=== PATIENT | male | born 1965 | race African-American/Black ===

== ENCOUNTER 2021-04-28 11:45 | Inpatient (IN) | payer OTHER ==
[~2021-04-28 11:45] MED LIST: ISOVUE-370 76%-LOCM 1 ML ONE
[2021-04-28 12:27] LABS: #Eosinphils 0.1 thou/uL (0.0-0.7); #Monocytes 0.7 thou/uL (0.11-0.59); #Neutrophils 5.8 thou/uL (1.40-6.50); %Basophils 0.3 % (0.0-1.0); %Eosinophils 1.9 % (0.0-10.0); %Monocytes 8.7 % (0.0-10.0); %Neutrophils 76.2 % (42.0-75.0); Hemoglobin 11.1 g/dL (14.0-18.0); Mean Corpuscular HGB CONC 31.1 g/dL (32.0-36.0); Mean Corpuscular Hemoglobin 24.4 pg (27.0-31.0); Mean Corpuscular Volume 78.7 fL (78.0-98.0); Mean Platelet Volume 6.4 fL (7.4-10.4); Platelet Count 151 thou/uL (130-400); RBC Distribution Width 22.4 % (11.5-14.5); Red Blood Cell (RBC) Count 4.53 mill/uL (4.70-6.10); White Blood Cell (WBC) Count 7.7 thou/uL (4.8-10.8)
[2021-04-28 12:34] LABS: INR-International Normal Ratio 1.6; Prothrombin Time 19.2 sec (12.0-14.7)
[2021-04-28] MEDS ORDERED: niCARdipine 25 MG/10 ML VIAL ONE (12:45)
[2021-04-28 12:49] LABS: ALT (SGPT) 9 U/L (8-55); AST (SGOT) 24 U/L (5-34); Albumin 3.7 g/dL (3.5-5.0); Alkaline Phosphatase 166 U/L (40-110); Anion Gap 14 mmol/L (10-20); BUN (Urea Nitrogen) 34 mg/dL (8.4-25.7); Bilirubin, Total 1.7 mg/dL (0.2-1.2); Calc. Creatinine Clearance 0 mL/min (70-130); Calcium 10.2 mg/dL (7.8-10.44); Carbon Dioxide 31 mmol/L (22-29); Chloride 102 mmol/L (98-107); Globulin 4.2 g/dL (2.4-3.5); Glucose 110 mg/dL (70-105); Potassium 3.9 mmol/L (3.5-5.1); Protein, Total 7.9 g/dL (6.0-8.3); Sodium 143 mmol/L (136-145)
[2021-04-28 12:57] LABS: Bacteria/HPF None Seen HPF (None Seen); Bilirubin Negative (Negative); Blood, Urine Trace (Negative); Clarity Clear (Clear); Glucose, Urine (Dipstick) Normal (Negative); Ketone, Urine Negative (Negative); Leukocyte Negative Leu/uL (Negative); Nitrite Negative (Negative); Protein, Urine (Dipstick) 50 mg/dL (Neg-Trace); RBC/HPF 0-3 HPF (0-3); Specific Gravity, Urine 1.016 (1.002-1.036); Squamous Epithelial 0-3 HPF (0-3); Urobilinogen Normal mg/dL (Less than 2); WBC/HPF 0-3 HPF (0-3); pH, Urine 6.5 (5.0-9.0)
[2021-04-28] MEDS ORDERED: Human Prothrombin Complx(PCC) 2,500 UNIT in Admixture Fee 1 EACH IV SCH (13:00)
[2021-04-28] MEDS ORDERED: niCARdipine 25 MG in Sodium Chloride 0.9% 250 ML 250 ML IVPB SCH (13:00)
[2021-04-28] MEDS ORDERED: Ondansetron ODT 4 MG TAB SL PRN (13:15)
[2021-04-28] MEDS ORDERED: Ondansetron PF 4 MG/2 ML Vial IVP PRN ×2 (13:15→15:16)
[2021-04-28 13:27] LABS: SARS-CoV-2 NAA Rapid Test Not Detected (NotDetected)
[2021-04-28] MEDS ORDERED: Dextrose 5% in Water 1,000 ML IV PRN (15:16)
[2021-04-28] MEDS ORDERED: Electrolyte Replacement Protocol 1 EACH IVPB PRN (15:16)
[2021-04-28] MEDS ORDERED: Senokot S 8.6-50 MG TAB PO PRN (15:45)
[2021-04-28] MEDS ORDERED: Bisacodyl 10 MG SUPP PR PRN (15:45)
[2021-04-28] MEDS ORDERED: Calcium Carbonate 500 MG ChewTAB PO PRN (15:45)
[2021-04-28] MEDS ORDERED: FLU VACC QS2021-22(6MOS UP)/PF 60 MCG/0.5 ML SYRINGE IM ONE (16:30)
[2021-04-28] MEDS ORDERED: Prevnar 13-Val Conj/PF 0.5 ML SYRINGE IM ONE (16:30)
[2021-04-28] MEDS: Dextrose 5 % And 0.9 % NaCl 1,000 ML IV SCH (16:54)
[2021-04-28] MEDS ORDERED: Morphine 4 MG/ML VIAL ONE (17:34)
[2021-04-28] MEDS: niCARdipine 25 MG in Sodium Chloride 0.9% 250 ML 250 ML IVPB PRN ×2 (17:56→23:49)
[2021-04-28] MEDS ORDERED: Famotidine/PF 20 mg/2ml Vial SLOW IVP SCH (21:00)
[2021-04-28] MEDS: Labetalol HCl 100 MG/20 ML VIAL SLOW IVP PRN ×2 (21:44→23:45)
[2021-04-29] MEDS: Labetalol HCl 100 MG/20 ML VIAL SLOW IVP PRN (03:00)
[2021-04-29] MEDS: niCARdipine 25 MG in Sodium Chloride 0.9% 250 ML 250 ML IVPB PRN ×2 (03:59→20:24)
[2021-04-29 04:32] LABS: #Eosinphils 0.1 thou/uL (0.0-0.7); #Lymphocytes 0.9 thou/uL (1.20-3.40); #Monocytes 0.7 thou/uL (0.11-0.59); #Neutrophils 7.3 thou/uL (1.40-6.50); %Basophils 0.1 % (0.0-1.0); %Lymphocytes 10.4 % (21.0-51.0); %Monocytes 8.2 % (0.0-10.0); %Neutrophils 80.3 % (42.0-75.0); Hemoglobin 10.3 g/dL (14.0-18.0); Mean Corpuscular HGB CONC 31.2 g/dL (32.0-36.0); Mean Corpuscular Hemoglobin 24.3 pg (27.0-31.0); Mean Corpuscular Volume 77.8 fL (78.0-98.0); Mean Platelet Volume 6.6 fL (7.4-10.4); Platelet Count 155 thou/uL (130-400); RBC Distribution Width 22.3 % (11.5-14.5); Red Blood Cell (RBC) Count 4.22 mill/uL (4.70-6.10); White Blood Cell (WBC) Count 9.1 thou/uL (4.8-10.8)
[2021-04-29] MEDS ORDERED: Amiodarone 150 MG, Admixture Fee 1 EACH in Dextrose 5% in Water 100 ML IVPB SCH (04:45)
[2021-04-29] MEDS ORDERED: Amiodarone 450 MG, Admixture Fee 1 EACH in Dextrose 5% in Water 250 ML IVPB SCH (04:45)
[2021-04-29 04:54] LABS: Anion Gap 16 mmol/L (10-20); BUN (Urea Nitrogen) 32 mg/dL (8.4-25.7); Calc. Creatinine Clearance 66 mL/min (70-130); Calcium 10.1 mg/dL (7.8-10.44); Carbon Dioxide 28 mmol/L (22-29); Chloride 103 mmol/L (98-107); Glucose 159 mg/dL (70-105); Magnesium 1.8 mg/dL (1.6-2.6); Potassium 3.7 mmol/L (3.5-5.1); Sodium 143 mmol/L (136-145)
[2021-04-29] MEDS: Pantoprazole 40 MG VIAL IVP SCH (07:59)
[2021-04-29] MEDS: Dextrose 5 % And 0.9 % NaCl 1,000 ML IV SCH (07:59)
[2021-04-29] MEDS: Diltiazem 125 MG in Sodium Chloride 0.9% 100 ML IVPB SCH ×2 (08:01→19:37)
[2021-04-29] MEDS ORDERED: Magnesium 2 GM/50 ML 2 GM in Premix Bag 1 BAG IVPB SCH (10:00)
[2021-04-29] MEDS: Insulin Regular 300 UNITS/3 ML VIAL SC PRN ×2 (10:15→16:26)
[2021-04-30] MEDS: niCARdipine 25 MG in Sodium Chloride 0.9% 250 ML 250 ML IVPB PRN (04:05)
[2021-04-30] MEDS: Dextrose 5 % And 0.9 % NaCl 1,000 ML IV SCH (04:08)
[2021-04-30] MEDS: Insulin Regular 300 UNITS/3 ML VIAL SC PRN ×2 (05:50→22:55)
[2021-04-30 07:36] LABS: Hemoglobin 9.9 g/dL (14.0-18.0); Mean Corpuscular HGB CONC 31.7 g/dL (32.0-36.0); Mean Corpuscular Hemoglobin 24.7 pg (27.0-31.0); Mean Corpuscular Volume 77.9 fL (78.0-98.0); Mean Platelet Volume 6.7 fL (7.4-10.4); Platelet Count 144 thou/uL (130-400); RBC Distribution Width 22.3 % (11.5-14.5); Red Blood Cell (RBC) Count 4.02 mill/uL (4.70-6.10)
[2021-04-30 07:56] LABS: Anion Gap 14 mmol/L (10-20); BUN (Urea Nitrogen) 39 mg/dL (8.4-25.7); Calc. Creatinine Clearance 39 mL/min (70-130); Calcium 9.6 mg/dL (7.8-10.44); Carbon Dioxide 29 mmol/L (22-29); Chloride 105 mmol/L (98-107); Glucose 166 mg/dL (70-105); Sodium 144 mmol/L (136-145)
[2021-04-30 08:13] LABS: #Eosinphils 0.1 thou/uL (0.0-0.7); #Lymphocytes 0.9 thou/uL (1.20-3.40); #Monocytes 0.8 thou/uL (0.11-0.59); #Neutrophils 7.3 thou/uL (1.40-6.50); %Basophils 0.1 % (0.0-1.0); %Eosinophils 1.3 % (0.0-10.0); %Lymphocytes 9.4 % (21.0-51.0); %Monocytes 8.5 % (0.0-10.0); %Neutrophils 80.7 % (42.0-75.0); Anisocytosis SLIGHT = 6-15 cells (100X) (0-5/hpf); Hypochromia SLIGHT = 6-15 cells (100X) (0-5/hpf); MDiff Complete? YES; Platelet Morphology Comment Appears Adequate; Polychromasia SLIGHT = 2-3 cells (100X) (0-2/hpf)
[2021-04-30] MEDS: Diltiazem 125 MG in Sodium Chloride 0.9% 100 ML IVPB SCH ×2 (10:01→22:46)
[2021-04-30] MEDS: Sodium Chloride 0.45% 1,000 ML IV SCH ×2 (10:02→13:10)
[2021-04-30] MEDS: Pantoprazole 40 MG VIAL IVP SCH (10:06)
[2021-04-30] MEDS: Sodium Chloride 0.9% 1,000 ML IV SCH (12:30)
[2021-04-30] MEDS ORDERED: cloNIDine 0.1mg/24 Hour PATCH TD SCH (13:00)
[2021-04-30] MEDS: Carvedilol 3.125 MG TAB PER TUBE SCH ×2 (13:09→17:48)
[2021-04-30 13:49] LABS: Bilirubin Negative (Negative); Blood, Urine 3+ (Negative); Clarity Turbid (Clear); Glucose, Urine (Dipstick) Normal (Negative); Ketone, Urine Negative (Negative); Leukocyte 500 Leu/uL (Negative); Nitrite Negative (Negative); Protein, Urine (Dipstick) 300 mg/dL (Neg-Trace); RBC/HPF Greater than 50 HPF (0-3); Specific Gravity, Urine 1.019 (1.002-1.036); Squamous Epithelial None Seen HPF (0-3); Urobilinogen 3 mg/dL (Less than 2); pH, Urine 6.5 (5.0-9.0)
[2021-04-30 13:52] LABS: Bacteria/HPF 2+ HPF (None Seen)
[2021-04-30] MEDS: Labetalol HCl 100 MG/20 ML VIAL SLOW IVP PRN ×3 (14:18→22:26)
[2021-05-01] MEDS: Sodium Chloride 0.9% 1,000 ML IV SCH ×3 (01:05→20:04)
[2021-05-01] MEDS: Labetalol HCl 100 MG/20 ML VIAL SLOW IVP PRN ×2 (01:06→04:15)
[2021-05-01 03:40] LABS: #Eosinphils 0.1 thou/uL (0.0-0.7); #Lymphocytes 0.7 thou/uL (1.20-3.40); #Monocytes 0.6 thou/uL (0.11-0.59); #Neutrophils 8.2 thou/uL (1.40-6.50); %Basophils 0.3 % (0.0-1.0); %Eosinophils 1.3 % (0.0-10.0); %Lymphocytes 6.9 % (21.0-51.0); %Monocytes 5.9 % (0.0-10.0); %Neutrophils 85.6 % (42.0-75.0); Mean Corpuscular HGB CONC 30.9 g/dL (32.0-36.0); Mean Corpuscular Hemoglobin 24.2 pg (27.0-31.0); Mean Corpuscular Volume 78.5 fL (78.0-98.0); Mean Platelet Volume 6.4 fL (7.4-10.4); Platelet Count 142 thou/uL (130-400); RBC Distribution Width 22.4 % (11.5-14.5); Red Blood Cell (RBC) Count 4.15 mill/uL (4.70-6.10); White Blood Cell (WBC) Count 9.6 thou/uL (4.8-10.8)
[2021-05-01 03:57] LABS: Anion Gap 12 mmol/L (10-20); BUN (Urea Nitrogen) 49 mg/dL (8.4-25.7); Calc. Creatinine Clearance 36 mL/min (70-130); Calcium 9.4 mg/dL (7.8-10.44); Carbon Dioxide 29 mmol/L (22-29); Chloride 106 mmol/L (98-107); Glucose 181 mg/dL (70-105); Potassium 4.1 mmol/L (3.5-5.1); Sodium 143 mmol/L (136-145)
[2021-05-01] MEDS: Insulin Regular 300 UNITS/3 ML VIAL SC PRN ×3 (04:21→17:19)
[2021-05-01] MEDS: Carvedilol 3.125 MG TAB PER TUBE SCH ×2 (08:01→16:44)
[2021-05-01] MEDS: Pantoprazole 40 MG VIAL IVP SCH (08:01)
[2021-05-01] MEDS: Diltiazem 125 MG in Sodium Chloride 0.9% 100 ML IVPB SCH ×2 (08:17→18:36)
[2021-05-01] MEDS: Amlodipine 10 MG TAB PER TUBE SCH (08:32)
[2021-05-01 09:47] LABS: Hemoglobin A1c 6.4 % (4.0-6.0)
[2021-05-01] MEDS: Acetaminophen 325 MG TAB PO PRN (13:07)
[2021-05-01] MEDS ORDERED: Furosemide 20 MG/2 ML VIAL SLOW IVP SCH (21:45)
[2021-05-01] MEDS ORDERED: niCARdipine 50 MG in Sodium Chloride 0.9% 250 ML 250 ML IV SCH (22:30)
[2021-05-01 22:55] LABS: Actual Bicarbonate (HCO3a) 26.7 mEq/L (22-28); Base Excess (BEa) 2.7 mEq/L (-2.0 to +3.0); CO2 Tension 38.6 mmHg (35.0-45.0); Calcium, Ionized (arterial) 1.15 mmol/L (1.12-1.30); Carboxyhemoglobin (COHb) 1.6 gm% (0.0-3.0); Hemoglobin (Hb) 11.4 g/dL (14.0-18.0); Potassium - ABG Lab 4.16 mmol/L (3.70-5.30); pH, Arterial 7.46 (7.35-7.45)
[2021-05-01 22:57] LABS: O2 Tension (PaO2), arterial 42.6 mmHg (80.0-100.0); Puncture Site 760
[2021-05-01] MEDS ORDERED: Furosemide 40 MG/4 ML VIAL ONE (23:17)
[2021-05-01] MEDS ORDERED: Furosemide 40 MG/4 ML VIAL SLOW IVP SCH (23:30)
[2021-05-02] MEDS: Labetalol HCl 100 MG/20 ML VIAL SLOW IVP PRN ×2 (00:39→19:29)
[2021-05-02 03:30] LABS: #Eosinphils 0.1 thou/uL (0.0-0.7); #Lymphocytes 0.6 thou/uL (1.20-3.40); #Monocytes 0.6 thou/uL (0.11-0.59); #Neutrophils 8.4 thou/uL (1.40-6.50); %Basophils 0.2 % (0.0-1.0); %Eosinophils 1.1 % (0.0-10.0); %Lymphocytes 6.6 % (21.0-51.0); %Monocytes 5.9 % (0.0-10.0); %Neutrophils 86.2 % (42.0-75.0); Hemoglobin 10.4 g/dL (14.0-18.0); Mean Corpuscular Hemoglobin 24.6 pg (27.0-31.0); Mean Corpuscular Volume 79.3 fL (78.0-98.0); Mean Platelet Volume 6.1 fL (7.4-10.4); Platelet Count 133 thou/uL (130-400); RBC Distribution Width 22.4 % (11.5-14.5); Red Blood Cell (RBC) Count 4.24 mill/uL (4.70-6.10); White Blood Cell (WBC) Count 9.7 thou/uL (4.8-10.8)
[2021-05-02] MEDS: Diltiazem 125 MG in Sodium Chloride 0.9% 100 ML IVPB SCH ×3 (03:36→19:27)
[2021-05-02 03:50] LABS: Anion Gap 14 mmol/L (10-20); BUN (Urea Nitrogen) 62 mg/dL (8.4-25.7); Calc. Creatinine Clearance 38 mL/min (70-130); Calcium 9.4 mg/dL (7.8-10.44); Carbon Dioxide 27 mmol/L (22-29); Chloride 109 mmol/L (98-107); Glucose 211 mg/dL (70-105); Potassium 4.2 mmol/L (3.5-5.1); Sodium 146 mmol/L (136-145)
[2021-05-02] MEDS: Insulin Regular 300 UNITS/3 ML VIAL SC PRN ×3 (05:49→16:34)
[2021-05-02 08:49] LABS: Actual Bicarbonate (HCO3a) 29.9 mEq/L (22-28); Base Excess (BEa) 4.8 mEq/L (-2.0 to +3.0); Calcium, Ionized (arterial) 1.17 mmol/L (1.12-1.30); Carboxyhemoglobin (COHb) 0.7 gm% (0.0-3.0); Hemoglobin (Hb) 10.6 g/dL (14.0-18.0); O2 Tension (PaO2), arterial 104.4 mmHg (80.0-100.0); Potassium - ABG Lab 3.87 mmol/L (3.70-5.30); Puncture Site LRA; pH, Arterial 7.42 (7.35-7.45)
[2021-05-02] MEDS: Amlodipine 10 MG TAB PER TUBE SCH (10:06)
[2021-05-02] MEDS: Carvedilol 3.125 MG TAB PER TUBE SCH ×2 (10:06→17:34)
[2021-05-02] MEDS: Pantoprazole 40 MG VIAL IVP SCH (10:06)
[2021-05-02] MEDS: Lantus 1000 UNITS/10 ML VIAL SC SCH (10:07)
[2021-05-02] MEDS: Acetaminophen 325 MG TAB PO PRN (19:29)
[2021-05-03] MEDS: Diltiazem 125 MG in Sodium Chloride 0.9% 100 ML IVPB SCH ×2 (02:17→12:10)
[2021-05-03 04:06] LABS: Hemoglobin 9.9 g/dL (14.0-18.0); Mean Corpuscular HGB CONC 30.5 g/dL (32.0-36.0); Mean Corpuscular Hemoglobin 24.4 pg (27.0-31.0); Mean Corpuscular Volume 79.8 fL (78.0-98.0); Mean Platelet Volume 6.3 fL (7.4-10.4); Platelet Count 131 thou/uL (130-400); RBC Distribution Width 22.3 % (11.5-14.5); Red Blood Cell (RBC) Count 4.04 mill/uL (4.70-6.10); White Blood Cell (WBC) Count 9.3 thou/uL (4.8-10.8)
[2021-05-03 04:14] LABS: #Lymphocytes 0.6 thou/uL (1.20-3.40); #Monocytes 0.6 thou/uL (0.11-0.59); #Neutrophils 8.1 thou/uL (1.40-6.50); %Basophils 0.2 % (0.0-1.0); %Eosinophils 0.4 % (0.0-10.0); %Lymphocytes 6.1 % (21.0-51.0); %Monocytes 6.3 % (0.0-10.0)
[2021-05-03 04:17] LABS: Anion Gap 13 mmol/L (10-20); BUN (Urea Nitrogen) 63 mg/dL (8.4-25.7); Calc. Creatinine Clearance 48 mL/min (70-130); Calcium 9.3 mg/dL (7.8-10.44); Carbon Dioxide 28 mmol/L (22-29); Chloride 114 mmol/L (98-107); Glucose 244 mg/dL (70-105); Potassium 3.8 mmol/L (3.5-5.1); Sodium 151 mmol/L (136-145)
[2021-05-03] MEDS: Insulin Regular 300 UNITS/3 ML VIAL SC PRN ×4 (05:20→20:04)
[2021-05-03] MEDS: Carvedilol 3.125 MG TAB PER TUBE SCH ×2 (07:49→16:53)
[2021-05-03] MEDS: Amlodipine 10 MG TAB PER TUBE SCH (07:49)
[2021-05-03] MEDS: Pantoprazole 40 MG VIAL IVP SCH (07:50)
[2021-05-03] MEDS: Lantus 1000 UNITS/10 ML VIAL SC SCH (08:00)
[2021-05-03] MEDS: Labetalol HCl 100 MG/20 ML VIAL SLOW IVP PRN ×2 (10:36→18:34)
[2021-05-03 12:19] LABS: Actual Bicarbonate (HCO3a) 30.2 mEq/L (22-28); Base Excess (BEa) 5.5 mEq/L (-2.0 to +3.0); CO2 Tension 44.8 mmHg (35.0-45.0); Calcium, Ionized (arterial) 1.21 mmol/L (1.12-1.30); Carboxyhemoglobin (COHb) 0.4 gm% (0.0-3.0); Hemoglobin (Hb) 10.7 g/dL (14.0-18.0); O2 Tension (PaO2), arterial 88.9 mmHg (80.0-100.0); Potassium - ABG Lab 3.81 mmol/L (3.70-5.30); pH, Arterial 7.45 (7.35-7.45)
[2021-05-03 12:20] LABS: Puncture Site RBA
[2021-05-04] MEDS: Labetalol HCl 100 MG/20 ML VIAL SLOW IVP PRN ×4 (01:14→13:45)
[2021-05-04] MEDS: Diltiazem 125 MG in Sodium Chloride 0.9% 100 ML IVPB SCH ×2 (02:38→11:31)
[2021-05-04 04:55] LABS: #Eosinphils 0.1 thou/uL (0.0-0.7); #Lymphocytes 0.7 thou/uL (1.20-3.40); #Monocytes 0.5 thou/uL (0.11-0.59); #Neutrophils 7.1 thou/uL (1.40-6.50); %Basophils 0.3 % (0.0-1.0); %Eosinophils 1.6 % (0.0-10.0); %Lymphocytes 7.9 % (21.0-51.0); %Monocytes 5.5 % (0.0-10.0); %Neutrophils 84.8 % (42.0-75.0); Hemoglobin 9.4 g/dL (14.0-18.0); Mean Corpuscular HGB CONC 30.6 g/dL (32.0-36.0); Mean Corpuscular Hemoglobin 24.8 pg (27.0-31.0); Mean Corpuscular Volume 80.9 fL (78.0-98.0); Mean Platelet Volume 7.3 fL (7.4-10.4); Platelet Count 141 thou/uL (130-400); RBC Distribution Width 22.1 % (11.5-14.5); Red Blood Cell (RBC) Count 3.81 mill/uL (4.70-6.10); White Blood Cell (WBC) Count 8.4 thou/uL (4.8-10.8)
[2021-05-04 05:16] LABS: Anion Gap 12 mmol/L (10-20); BUN (Urea Nitrogen) 56 mg/dL (8.4-25.7); Calc. Creatinine Clearance 57 mL/min (70-130); Calcium 9.4 mg/dL (7.8-10.44); Carbon Dioxide 30 mmol/L (22-29); Chloride 115 mmol/L (98-107); Glucose 237 mg/dL (70-105); Potassium 4.1 mmol/L (3.5-5.1); Sodium 153 mmol/L (136-145)
[2021-05-04] MEDS: Insulin Regular 300 UNITS/3 ML VIAL SC PRN ×4 (06:34→22:09)
[2021-05-04] MEDS: Carvedilol 3.125 MG TAB PER TUBE SCH (07:18)
[2021-05-04] MEDS ORDERED: Racepinephrine 2.25% 0.5 ML NEB ONE (07:29)
[2021-05-04] MEDS ORDERED: Sodium Chloride For Inhalation 0.9% 3 ML NEB ONE (07:29)
[2021-05-04] MEDS ORDERED: Racepinephrine 2.25% 0.5 ML NEB NEB SCH (07:45)
[2021-05-04] MEDS: Pantoprazole 40 MG VIAL IVP SCH (09:09)
[2021-05-04] MEDS: Metoprolol Tartrate 50 MG TAB PO SCH ×2 (09:09→20:29)
[2021-05-04] MEDS: Amlodipine 10 MG TAB PER TUBE SCH (09:09)
[2021-05-04] MEDS: Lantus 1000 UNITS/10 ML VIAL SC SCH (09:10)
[2021-05-05] MEDS: Insulin Regular 300 UNITS/3 ML VIAL SC PRN ×4 (04:17→22:20)
[2021-05-05 04:46] LABS: Anion Gap 13 mmol/L (10-20); BUN (Urea Nitrogen) 48 mg/dL (8.4-25.7); Calc. Creatinine Clearance 65 mL/min (70-130); Calcium 9.5 mg/dL (7.8-10.44); Carbon Dioxide 28 mmol/L (22-29); Chloride 115 mmol/L (98-107); Glucose 224 mg/dL (70-105); Potassium 4.4 mmol/L (3.5-5.1); Sodium 152 mmol/L (136-145)
[2021-05-05 05:45] LABS: #Eosinphils 0.2 thou/uL (0.0-0.7); #Lymphocytes 0.8 thou/uL (1.20-3.40); #Monocytes 0.5 thou/uL (0.11-0.59); #Neutrophils 7.3 thou/uL (1.40-6.50); %Basophils 0.2 % (0.0-1.0); %Eosinophils 2.1 % (0.0-10.0); %Lymphocytes 8.6 % (21.0-51.0); %Monocytes 5.3 % (0.0-10.0); %Neutrophils 83.8 % (42.0-75.0); Anisocytosis SLIGHT = 6-15 cells (100X) (0-5/hpf); MDiff Complete? YES; Mean Corpuscular HGB CONC 30.4 g/dL (32.0-36.0); Mean Corpuscular Hemoglobin 24.6 pg (27.0-31.0); Mean Corpuscular Volume 80.8 fL (78.0-98.0); Mean Platelet Volume 8.4 fL (7.4-10.4); Platelet Count 174 thou/uL (130-400); RBC Distribution Width 22.5 % (11.5-14.5); Red Blood Cell (RBC) Count 4.09 mill/uL (4.70-6.10); White Blood Cell (WBC) Count 8.7 thou/uL (4.8-10.8)
[2021-05-05] MEDS: Diltiazem 125 MG in Sodium Chloride 0.9% 100 ML IVPB SCH (08:34)
[2021-05-05] MEDS: Amlodipine 10 MG TAB PER TUBE SCH (08:56)
[2021-05-05] MEDS: Pantoprazole 40 MG VIAL IVP SCH (08:56)
[2021-05-05] MEDS: Metoprolol Tartrate 50 MG TAB PO SCH ×2 (08:56→20:47)
[2021-05-05] MEDS: Lantus 1000 UNITS/10 ML VIAL SC SCH ×2 (09:52→18:09)
[2021-05-05] MEDS: niCARdipine 25 MG in Sodium Chloride 0.9% 250 ML 250 ML IVPB SCH (20:47)
[2021-05-06] MEDS: niCARdipine 25 MG in Sodium Chloride 0.9% 250 ML 250 ML IVPB SCH ×3 (02:52→20:30)
[2021-05-06] MEDS: Insulin Regular 300 UNITS/3 ML VIAL SC PRN ×3 (04:27→16:57)
[2021-05-06 05:03] LABS: Anion Gap 13 mmol/L (10-20); BUN (Urea Nitrogen) 47 mg/dL (8.4-25.7); Calc. Creatinine Clearance 63 mL/min (70-130); Calcium 9.4 mg/dL (7.8-10.44); Carbon Dioxide 28 mmol/L (22-29); Chloride 116 mmol/L (98-107); Glucose 222 mg/dL (70-105); Potassium 3.8 mmol/L (3.5-5.1); Sodium 153 mmol/L (136-145)
[2021-05-06 05:17] LABS: #Eosinphils 0.2 thou/uL (0.0-0.7); #Lymphocytes 0.7 thou/uL (1.20-3.40); #Monocytes 0.5 thou/uL (0.11-0.59); #Neutrophils 7.6 thou/uL (1.40-6.50); %Basophils 0.2 % (0.0-1.0); %Lymphocytes 7.4 % (21.0-51.0); %Monocytes 5.4 % (0.0-10.0); Hemoglobin 10.5 g/dL (14.0-18.0); Mean Corpuscular HGB CONC 29.9 g/dL (32.0-36.0); Mean Corpuscular Hemoglobin 24.2 pg (27.0-31.0); Mean Corpuscular Volume 80.8 fL (78.0-98.0); Mean Platelet Volume 11.7 fL (7.4-10.4); Platelet Count 193 thou/uL (130-400); RBC Distribution Width 22.2 % (11.5-14.5); Red Blood Cell (RBC) Count 4.35 mill/uL (4.70-6.10)
[2021-05-06 08:02] LABS: SARS-CoV-2 PCR by NAA Not Detected (NotDetected)
[2021-05-06] MEDS: Lantus 1000 UNITS/10 ML VIAL SC SCH ×2 (09:18→16:58)
[2021-05-06] MEDS: Acetaminophen 325 MG TAB PO PRN ×2 (09:18→16:58)
[2021-05-06] MEDS: Metoprolol Tartrate 50 MG TAB PO SCH ×2 (09:19→20:34)
[2021-05-06] MEDS: Pantoprazole 40 MG VIAL IVP SCH (09:19)
[2021-05-06] MEDS ORDERED: Dextrose 5% in Water 1,000 ML IV SCH (10:45)
[2021-05-06] MEDS ORDERED: Furosemide 20 MG/2 ML VIAL IVP SCH (12:00)
[2021-05-06] MEDS: Sodium Chloride 0.45% 1,000 ML IV SCH ×3 (12:45→20:31)
[2021-05-06] MEDS: Diltiazem 125 MG in Sodium Chloride 0.9% 100 ML IVPB SCH (16:59)
[2021-05-07] MEDS: niCARdipine 25 MG in Sodium Chloride 0.9% 250 ML 250 ML IVPB SCH ×3 (00:29→21:20)
[2021-05-07] MEDS: Acetaminophen 325 MG TAB PO PRN ×3 (00:38→21:25)
[2021-05-07] MEDS ORDERED: Piperacillin/Tazobactam 3.375 GM in Sodium Chloride 0.9% 100 ML IVPB SCH ×2 (01:45→02:15)
[2021-05-07] MEDS ORDERED: Vancomycin 1 GM in Premix Bag 1 BAG IVPB SCH (01:50)
[2021-05-07] MEDS ORDERED: VANCOMYCIN 2 GRAM/400 ML BAG 2 GM in Premix Bag 1 BAG IVPB SCH (02:15)
[2021-05-07] MEDS: Insulin Regular 300 UNITS/3 ML VIAL SC PRN ×4 (02:56→21:58)
[2021-05-07 02:58] LABS: Hemoglobin 9.7 g/dL (14.0-18.0); Mean Corpuscular HGB CONC 30.5 g/dL (32.0-36.0); Mean Corpuscular Hemoglobin 24.6 pg (27.0-31.0); Mean Corpuscular Volume 80.5 fL (78.0-98.0); Mean Platelet Volume 11.7 fL (7.4-10.4); Platelet Count 166 thou/uL (130-400); RBC Distribution Width 21.9 % (11.5-14.5); Red Blood Cell (RBC) Count 3.93 mill/uL (4.70-6.10); White Blood Cell (WBC) Count 5.3 thou/uL (4.8-10.8)
[2021-05-07 03:15] LABS: Lactic Acid 0.6 mmol/L (0.5-2.2)
[2021-05-07 03:15] LABS: Bacteria/HPF None Seen HPF (None Seen); Bilirubin Negative (Negative); Blood, Urine 3+ (Negative); Clarity Turbid (Clear); Glucose, Urine (Dipstick) Normal (Negative); Ketone, Urine Negative (Negative); Leukocyte 500 Leu/uL (Negative); Nitrite Negative (Negative); Protein, Urine (Dipstick) 100 mg/dL (Neg-Trace); RBC/HPF Greater than 50 HPF (0-3); Specific Gravity, Urine 1.015 (1.002-1.036); Squamous Epithelial None Seen HPF (0-3); Urobilinogen 12 mg/dL (Less than 2); WBC/HPF Greater than 50 HPF (0-3); pH, Urine 6.5 (5.0-9.0)
[2021-05-07 03:17] LABS: Anion Gap 9 mmol/L (10-20); BUN (Urea Nitrogen) 49 mg/dL (8.4-25.7); Calc. Creatinine Clearance 64 mL/min (70-130); Carbon Dioxide 30 mmol/L (22-29); Chloride 115 mmol/L (98-107); Glucose 197 mg/dL (70-105); Potassium 3.8 mmol/L (3.5-5.1); Sodium 150 mmol/L (136-145)
[2021-05-07 03:23] LABS: #Eosinphils 0.1 thou/uL (0.0-0.7); #Lymphocytes 0.4 thou/uL (1.20-3.40); #Monocytes 0.6 thou/uL (0.11-0.59); #Neutrophils 4.3 thou/uL (1.40-6.50); %Basophils 0.1 % (0.0-1.0); %Eosinophils 1.4 % (0.0-10.0); %Monocytes 11.5 % (0.0-10.0); Anisocytosis SLIGHT = 6-15 cells (100X) (0-5/hpf); Hypochromia SLIGHT = 6-15 cells (100X) (0-5/hpf); MDiff Complete? YES; Microcytosis SLIGHT = 6-15 cells (100X) (0-5/hpf)
[2021-05-07 03:25] LABS: Urine Culture Reflex Yes Yes
[2021-05-07] MEDS: Piperacillin/Tazobactam 3.375 GM in Sodium Chloride 0.9% 100 ML IVPB SCH ×3 (05:40→21:21)
[2021-05-07] MEDS: Diltiazem 125 MG in Sodium Chloride 0.9% 100 ML IVPB SCH (05:43)
[2021-05-07] MEDS: Metoprolol Tartrate 50 MG TAB PO SCH ×2 (08:55→20:59)
[2021-05-07] MEDS: Pantoprazole 40 MG VIAL IVP SCH (08:55)
[2021-05-07] MEDS: Lantus 1000 UNITS/10 ML VIAL SC SCH ×2 (08:56→17:02)
[2021-05-07] MEDS ORDERED: cloNIDine 0.1mg/24 Hour PATCH TD SCH (09:00)
[2021-05-07] MEDS: Sodium Chloride 0.45% 1,000 ML IV SCH ×2 (11:31→21:24)
[2021-05-08] MEDS: VANCOMYCIN 1.75 GM/350 ML BAG 1.75 GM in Premix Bag 1 BAG IVPB SCH (01:26)
[2021-05-08] MEDS: Insulin Regular 300 UNITS/3 ML VIAL SC PRN ×2 (04:00→16:20)
[2021-05-08 04:44] LABS: Anion Gap 11 mmol/L (10-20); BUN (Urea Nitrogen) 47 mg/dL (8.4-25.7); Calc. Creatinine Clearance 57 mL/min (70-130); Calcium 8.8 mg/dL (7.8-10.44); Carbon Dioxide 28 mmol/L (22-29); Chloride 115 mmol/L (98-107); Glucose 190 mg/dL (70-105); Potassium 3.9 mmol/L (3.5-5.1); Sodium 150 mmol/L (136-145)
[2021-05-08] MEDS: Piperacillin/Tazobactam 3.375 GM in Sodium Chloride 0.9% 100 ML IVPB SCH ×3 (05:48→21:32)
[2021-05-08 06:26] LABS: Hemoglobin 9.9 g/dL (14.0-18.0); Mean Corpuscular HGB CONC 30.7 g/dL (32.0-36.0); Mean Corpuscular Hemoglobin 24.7 pg (27.0-31.0); Mean Corpuscular Volume 80.6 fL (78.0-98.0); Mean Platelet Volume 8.1 fL (7.4-10.4); Platelet Count 173 thou/uL (130-400); RBC Distribution Width 22.5 % (11.5-14.5); Red Blood Cell (RBC) Count 4.01 mill/uL (4.70-6.10); White Blood Cell (WBC) Count 5.5 thou/uL (4.8-10.8)
[2021-05-08 06:55] LABS: #Lymphocytes 0.8 thou/uL (1.20-3.40); #Monocytes 0.6 thou/uL (0.11-0.59); #Neutrophils 4.1 thou/uL (1.40-6.50); %Basophils 0.1 % (0.0-1.0); %Eosinophils 0.7 % (0.0-10.0); %Lymphocytes 14.8 % (21.0-51.0); %Monocytes 10.1 % (0.0-10.0); %Neutrophils 74.2 % (42.0-75.0); Anisocytosis SLIGHT = 6-15 cells (100X) (0-5/hpf); MDiff Complete? YES; Ovalocytes SLIGHT = 2-5 cells (100X) (0-1/hpf)
[2021-05-08] MEDS: Pantoprazole 40 MG VIAL IVP SCH (08:05)
[2021-05-08] MEDS: Metoprolol Tartrate 50 MG TAB PO SCH ×2 (08:05→20:44)
[2021-05-08] MEDS: Lantus 1000 UNITS/10 ML VIAL SC SCH ×2 (09:01→18:35)
[2021-05-08] MEDS: niCARdipine 25 MG in Sodium Chloride 0.9% 250 ML 250 ML IVPB SCH ×2 (17:37→21:31)
[2021-05-08] MEDS: hydrALAZINE 25 MG TAB PER TUBE SCH (20:44)
[2021-05-08] MEDS: Sodium Chloride 0.45% 1,000 ML IV SCH (20:51)
[2021-05-09] MEDS: Insulin Regular 300 UNITS/3 ML VIAL SC PRN ×4 (00:30→22:16)
[2021-05-09] MEDS: niCARdipine 25 MG in Sodium Chloride 0.9% 250 ML 250 ML IVPB SCH ×3 (02:22→21:09)
[2021-05-09] MEDS: VANCOMYCIN 1.75 GM/350 ML BAG 1.75 GM in Premix Bag 1 BAG IVPB SCH (02:22)
[2021-05-09 05:03] LABS: #Eosinphils 0.2 thou/uL (0.0-0.7); #Monocytes 0.5 thou/uL (0.11-0.59); #Neutrophils 4.7 thou/uL (1.40-6.50); %Basophils 0.3 % (0.0-1.0); %Eosinophils 2.8 % (0.0-10.0); %Lymphocytes 14.9 % (21.0-51.0); %Monocytes 8.1 % (0.0-10.0); %Neutrophils 73.9 % (42.0-75.0); Hemoglobin 10.2 g/dL (14.0-18.0); Mean Corpuscular HGB CONC 29.9 g/dL (32.0-36.0); Mean Corpuscular Hemoglobin 23.9 pg (27.0-31.0); Mean Corpuscular Volume 80.1 fL (78.0-98.0); Mean Platelet Volume 9.2 fL (7.4-10.4); Platelet Count 193 thou/uL (130-400); RBC Distribution Width 22.3 % (11.5-14.5); Red Blood Cell (RBC) Count 4.28 mill/uL (4.70-6.10); White Blood Cell (WBC) Count 6.3 thou/uL (4.8-10.8)
[2021-05-09 05:17] LABS: MDiff Complete? YES; Macrocytosis SLIGHT = 6-15 cells (100X) (0-5/hpf); Ovalocytes SLIGHT = 2-5 cells (100X) (0-1/hpf); Platelet Morphology Comment Appears Adequate; Target Cells SLIGHT = 2-5 cells (100X) (0-1/hpf)
[2021-05-09 05:21] LABS: Phosphorus 2.9 mg/dL (2.3-4.7)
[2021-05-09 05:24] LABS: Anion Gap 10 mmol/L (10-20); BUN (Urea Nitrogen) 45 mg/dL (8.4-25.7); Calc. Creatinine Clearance 63 mL/min (70-130); Calcium 8.1 mg/dL (7.8-10.44); Carbon Dioxide 26 mmol/L (22-29); Chloride 114 mmol/L (98-107); Glucose 160 mg/dL (70-105); Magnesium 2.6 mg/dL (1.6-2.6); Potassium 3.8 mmol/L (3.5-5.1); Sodium 146 mmol/L (136-145)
[2021-05-09] MEDS: Piperacillin/Tazobactam 3.375 GM in Sodium Chloride 0.9% 100 ML IVPB SCH ×3 (06:24→21:04)
[2021-05-09] MEDS: Sodium Chloride 0.45% 1,000 ML IV SCH ×6 (06:29→09:26)
[2021-05-09] MEDS ORDERED: cloNIDine 0.3mg/24 Hour PATCH TD SCH (09:00)
[2021-05-09] MEDS: hydrALAZINE 25 MG TAB PER TUBE SCH ×3 (09:16→19:57)
[2021-05-09] MEDS: Metoprolol Tartrate 50 MG TAB PO SCH ×2 (09:16→19:58)
[2021-05-09] MEDS: Pantoprazole 40 MG VIAL IVP SCH (09:16)
[2021-05-09] MEDS: Lantus 1000 UNITS/10 ML VIAL SC SCH ×2 (09:21→16:59)
[2021-05-09] MEDS: Acetaminophen 325 MG TAB PO PRN ×2 (12:21→19:58)
[2021-05-10 01:41] LABS: Vancomycin, Trough 24.1 ug/mL
[2021-05-10] MEDS: Sodium Chloride 0.45% 1,000 ML IV SCH ×2 (01:44→05:10)
[2021-05-10 04:56] LABS: #Eosinphils 0.2 thou/uL (0.0-0.7); #Lymphocytes 0.7 thou/uL (1.20-3.40); #Monocytes 0.4 thou/uL (0.11-0.59); #Neutrophils 3.3 thou/uL (1.40-6.50); %Basophils 0.2 % (0.0-1.0); %Eosinophils 4.3 % (0.0-10.0); %Lymphocytes 14.5 % (21.0-51.0); %Monocytes 7.7 % (0.0-10.0); %Neutrophils 73.4 % (42.0-75.0); Hemoglobin 10.3 g/dL (14.0-18.0); Mean Corpuscular HGB CONC 30.9 g/dL (32.0-36.0); Mean Corpuscular Hemoglobin 24.6 pg (27.0-31.0); Mean Corpuscular Volume 79.6 fL (78.0-98.0); Mean Platelet Volume 8.5 fL (7.4-10.4); Platelet Count 181 thou/uL (130-400); RBC Distribution Width 22.2 % (11.5-14.5); Red Blood Cell (RBC) Count 4.18 mill/uL (4.70-6.10); White Blood Cell (WBC) Count 4.5 thou/uL (4.8-10.8)
[2021-05-10] MEDS: Piperacillin/Tazobactam 3.375 GM in Sodium Chloride 0.9% 100 ML IVPB SCH ×3 (05:05→20:59)
[2021-05-10] MEDS: niCARdipine 25 MG in Sodium Chloride 0.9% 250 ML 250 ML IVPB SCH ×2 (05:05→15:22)
[2021-05-10] MEDS: Acetaminophen 325 MG TAB PO PRN ×2 (05:06→16:21)
[2021-05-10 05:13] LABS: Anion Gap 11 mmol/L (10-20); BUN (Urea Nitrogen) 41 mg/dL (8.4-25.7); Calc. Creatinine Clearance 67 mL/min (70-130); Calcium 7.8 mg/dL (7.8-10.44); Carbon Dioxide 22 mmol/L (22-29); Chloride 113 mmol/L (98-107); Glucose 111 mg/dL (70-105); Potassium 3.9 mmol/L (3.5-5.1); Sodium 142 mmol/L (136-145)
[2021-05-10] MEDS: hydrALAZINE 25 MG TAB PER TUBE SCH ×3 (08:29→20:59)
[2021-05-10] MEDS: Metoprolol Tartrate 50 MG TAB PO SCH ×2 (08:29→20:59)
[2021-05-10] MEDS: Pantoprazole 40 MG GRANULES PACKET PO SCH (08:29)
[2021-05-10] MEDS: Lantus 1000 UNITS/10 ML VIAL SC SCH ×2 (08:30→16:21)
[2021-05-10] MEDS: VANCOMYCIN 1.25 GM/250 ML BAG 1.25 GM in Premix Bag 1 BAG IVPB SCH (10:31)
[2021-05-10] MEDS ORDERED: Bupivacaine PF 0.5% 30 ML VIAL ONE (17:12)
[2021-05-10] MEDS ORDERED: Xylocaine 1% w/ Epi 1:100K 10 ML VIAL ONE (17:12)
[2021-05-10] MEDS ORDERED: Fentanyl 100 MCG/2 ML VIAL ONE (17:21)
[2021-05-10] MEDS ORDERED: Lidocaine 1% PF 5 ML VIAL ONE (17:36)
[2021-05-10] MEDS ORDERED: Rocuronium Bromide 10 MG/ML (10ML VIAL) ONE (17:36)
[2021-05-10] MEDS ORDERED: PROPOFOL 200 MG/20 ML VIAL ONE (17:36)
[2021-05-10] MEDS ORDERED: Rocuronium Bromide 50 MG/5 ML VIAL ONE (17:44)
[2021-05-10] MEDS ORDERED: Propofol 1,000 MG/100 ML VIAL IV ONE (18:34)
[2021-05-10] MEDS ORDERED: Propofol BOLUS 1,000 MG/100 ML VIAL IV PRN (19:15)
[2021-05-10] MEDS ORDERED: Fentanyl BOLUS 250 ML IVPB PRN (19:15)
[2021-05-10] MEDS ORDERED: Morphine 2 MG/ML VIAL SLOW IVP PRN (19:15)
[2021-05-10] MEDS ORDERED: DISCONTINUE PREVIOUS NARCOTIC PAIN MEDICATIONS AND BENZODIAZEPINES FS SCH (19:15)
[2021-05-10] MEDS ORDERED: Fentanyl CADD 100 ML IV SCH (19:15)
[2021-05-10 19:34] LABS: Actual Bicarbonate (HCO3a) 23.5 mEq/L (22-28); Base Excess (BEa) -3.6 mEq/L (-2.0 to +3.0); CO2 Tension 51.5 mmHg (35.0-45.0); Calcium, Ionized (arterial) 1.16 mmol/L (1.12-1.30); Carboxyhemoglobin (COHb) 0.8 gm% (0.0-3.0); Hemoglobin (Hb) 12.5 g/dL (14.0-18.0); Potassium - ABG Lab 4.05 mmol/L (3.70-5.30); pH, Arterial 7.28 (7.35-7.45)
[2021-05-10 19:35] LABS: O2 Tension (PaO2), arterial 54.3 mmHg (80.0-100.0)
[2021-05-10 19:36] LABS: ALV-art Gradient 309.125 mmHg (0-20); Puncture Site LRA
[2021-05-11] MEDS: Propofol 1,000 MG/100 ML VIAL IV PRN ×2 (04:16→14:14)
[2021-05-11 04:28] LABS: #Lymphocytes 0.7 thou/uL (1.20-3.40); #Monocytes 0.4 thou/uL (0.11-0.59); #Neutrophils 2.1 thou/uL (1.40-6.50); %Eosinophils 1.3 % (0.0-10.0); %Lymphocytes 20.9 % (21.0-51.0); %Monocytes 11.8 % (0.0-10.0); %Neutrophils 65.9 % (42.0-75.0); Hemoglobin 10.1 g/dL (14.0-18.0); Mean Corpuscular HGB CONC 30.9 g/dL (32.0-36.0); Mean Corpuscular Hemoglobin 24.5 pg (27.0-31.0); Mean Corpuscular Volume 79.5 fL (78.0-98.0); Mean Platelet Volume 7.4 fL (7.4-10.4); Platelet Count 172 thou/uL (130-400); RBC Distribution Width 22.4 % (11.5-14.5); Red Blood Cell (RBC) Count 4.13 mill/uL (4.70-6.10); White Blood Cell (WBC) Count 3.2 thou/uL (4.8-10.8)
[2021-05-11 04:49] LABS: Anion Gap 13 mmol/L (10-20); BUN (Urea Nitrogen) 44 mg/dL (8.4-25.7); Calc. Creatinine Clearance 58 mL/min (70-130); Calcium 8.2 mg/dL (7.8-10.44); Carbon Dioxide 21 mmol/L (22-29); Chloride 118 mmol/L (98-107); Glucose 117 mg/dL (70-105); Potassium 4.2 mmol/L (3.5-5.1); Sodium 148 mmol/L (136-145)
[2021-05-11] MEDS: Piperacillin/Tazobactam 3.375 GM in Sodium Chloride 0.9% 100 ML IVPB SCH ×2 (05:54→12:31)
[2021-05-11 07:26] LABS: Actual Bicarbonate (HCO3a) 24.1 mEq/L (22-28); Base Excess (BEa) 0.1 mEq/L (-2.0 to +3.0); Calcium, Ionized (arterial) 1.11 mmol/L (1.12-1.30); Carboxyhemoglobin (COHb) 0.3 gm% (0.0-3.0); Hemoglobin (Hb) 10.9 g/dL (14.0-18.0); Potassium - ABG Lab 4.62 mmol/L (3.70-5.30); pH, Arterial 7.43 (7.35-7.45)
[2021-05-11 07:44] LABS: Puncture Site LRA
[2021-05-11] MEDS: Sodium Chloride 0.45% 1,000 ML IV SCH ×2 (08:49→19:32)
[2021-05-11] MEDS: hydrALAZINE 25 MG TAB PER TUBE SCH ×3 (09:05→21:16)
[2021-05-11] MEDS: Pantoprazole 40 MG GRANULES PACKET PO SCH (09:05)
[2021-05-11] MEDS: Metoprolol Tartrate 50 MG TAB PO SCH ×2 (09:05→21:16)
[2021-05-11] MEDS: Lantus 1000 UNITS/10 ML VIAL SC SCH ×2 (09:06→16:06)
[2021-05-11] MEDS: Acetaminophen 325 MG TAB PO PRN ×2 (09:18→16:06)
[2021-05-11] MEDS: VANCOMYCIN 1.25 GM/250 ML BAG 1.25 GM in Premix Bag 1 BAG IVPB SCH ×2 (11:00→12:31)
[2021-05-11] MEDS: hydrALAZINE 20 MG/ML VIAL SLOW IVP PRN (14:14)
[2021-05-11] MEDS ORDERED: Morphine 4 MG/ML VIAL ONE (15:44)
[2021-05-11] MEDS ORDERED: Minoxidil 2.5 MG TAB PO SCH (15:45)
[2021-05-11] MEDS: Insulin Regular 300 UNITS/3 ML VIAL SC PRN (16:06)
[2021-05-11] MEDS ORDERED: MEROPENEM 1 GM/50 ML 1 GM in Premix Bag 1 BAG IVPB SCH (18:30)
[2021-05-11] MEDS ORDERED: Meropenem 1 GM in Sodium Chloride 0.9% 100 ML IVPB SCH (18:45)
[2021-05-11] MEDS ORDERED: Meropenem 2 GM in Admixture Fee 1 EACH IVPB SCH (22:00)
[2021-05-12] MEDS: Propofol 1,000 MG/100 ML VIAL IV PRN (00:20)
[2021-05-12] MEDS: Meropenem 1 GM in Sodium Chloride 0.9% 100 ML IVPB SCH ×2 (04:21→14:57)
[2021-05-12 04:23] LABS: #Lymphocytes 0.8 thou/uL (1.20-3.40); #Monocytes 0.5 thou/uL (0.11-0.59); #Neutrophils 3.6 thou/uL (1.40-6.50); %Basophils 0.4 % (0.0-1.0); %Eosinophils 0.7 % (0.0-10.0); %Lymphocytes 16.3 % (21.0-51.0); %Monocytes 9.6 % (0.0-10.0); Hemoglobin 10.5 g/dL (14.0-18.0); Mean Corpuscular HGB CONC 30.8 g/dL (32.0-36.0); Mean Corpuscular Hemoglobin 24.4 pg (27.0-31.0); Mean Corpuscular Volume 79.4 fL (78.0-98.0); Mean Platelet Volume 7.4 fL (7.4-10.4); Platelet Count 174 thou/uL (130-400); RBC Distribution Width 22.5 % (11.5-14.5); Red Blood Cell (RBC) Count 4.32 mill/uL (4.70-6.10); White Blood Cell (WBC) Count 4.9 thou/uL (4.8-10.8)
[2021-05-12 04:32] LABS: Anion Gap 11 mmol/L (10-20); BUN (Urea Nitrogen) 49 mg/dL (8.4-25.7); Calc. Creatinine Clearance 56 mL/min (70-130); Calcium 7.8 mg/dL (7.8-10.44); Carbon Dioxide 21 mmol/L (22-29); Chloride 118 mmol/L (98-107); Glucose 174 mg/dL (70-105); Sodium 146 mmol/L (136-145)
[2021-05-12] MEDS: Acetaminophen 325 MG TAB PO PRN ×2 (04:40→14:56)
[2021-05-12] MEDS: Insulin Regular 300 UNITS/3 ML VIAL SC PRN ×3 (05:19→21:46)
[2021-05-12] MEDS ORDERED: Meropenem 1 GM in Sodium Chloride 0.9% 100 ML IVPB SCH (06:00)
[2021-05-12] MEDS: Metoprolol Tartrate 50 MG TAB PO SCH ×2 (08:25→20:26)
[2021-05-12] MEDS: hydrALAZINE 25 MG TAB PER TUBE SCH ×3 (08:25→20:25)
[2021-05-12] MEDS: Pantoprazole 40 MG GRANULES PACKET PO SCH (08:26)
[2021-05-12] MEDS: Minoxidil 2.5 MG TAB PO SCH (08:26)
[2021-05-12] MEDS: Lantus 1000 UNITS/10 ML VIAL SC SCH ×2 (09:33→16:35)
[2021-05-12 11:27] LABS: Vancomycin, Trough 22.2 ug/mL
[2021-05-12] MEDS: VANCOMYCIN 1.25 GM/250 ML BAG 1.25 GM in Premix Bag 1 BAG IVPB SCH (11:46)
[2021-05-12] MEDS: Sodium Chloride 0.45% 1,000 ML IV SCH ×2 (14:05→21:51)
[2021-05-12] MEDS: Morphine 4 MG/ML VIAL SLOW IVP PRN (15:38)
[2021-05-12] MEDS: Atorvastatin Calcium 10 MG TAB PO SCH (20:26)
[2021-05-13] MEDS: Morphine 4 MG/ML VIAL SLOW IVP PRN (00:32)
[2021-05-13] MEDS: Acetaminophen 325 MG TAB PO PRN ×3 (00:33→20:13)
[2021-05-13] MEDS: Meropenem 1 GM in Sodium Chloride 0.9% 100 ML IVPB SCH ×2 (03:39→15:40)
[2021-05-13 03:49] LABS: #Lymphocytes 0.7 thou/uL (1.20-3.40); #Monocytes 0.3 thou/uL (0.11-0.59); #Neutrophils 5.2 thou/uL (1.40-6.50); %Basophils 0.1 % (0.0-1.0); %Eosinophils 0.7 % (0.0-10.0); %Lymphocytes 11.4 % (21.0-51.0); %Monocytes 4.7 % (0.0-10.0); %Neutrophils 83.1 % (42.0-75.0); Hemoglobin 10.3 g/dL (14.0-18.0); Mean Corpuscular HGB CONC 32.2 g/dL (32.0-36.0); Mean Corpuscular Hemoglobin 25.2 pg (27.0-31.0); Mean Corpuscular Volume 78.3 fL (78.0-98.0); Mean Platelet Volume 8.2 fL (7.4-10.4); Platelet Count 187 thou/uL (130-400); RBC Distribution Width 22.6 % (11.5-14.5); Red Blood Cell (RBC) Count 4.08 mill/uL (4.70-6.10); White Blood Cell (WBC) Count 6.2 thou/uL (4.8-10.8)
[2021-05-13 04:05] LABS: Anion Gap 13 mmol/L (10-20); BUN (Urea Nitrogen) 61 mg/dL (8.4-25.7); Calc. Creatinine Clearance 47 mL/min (70-130); Carbon Dioxide 20 mmol/L (22-29); Chloride 118 mmol/L (98-107); Glucose 175 mg/dL (70-105); Potassium 4.2 mmol/L (3.5-5.1); Sodium 147 mmol/L (136-145)
[2021-05-13 04:09] LABS: ALT (SGPT) 26 U/L (8-55); AST (SGOT) 63 U/L (5-34); Albumin 1.9 g/dL (3.5-5.0); Alkaline Phosphatase 138 U/L (40-110); Bilirubin, Direct 0.4 mg/dL (0.1-0.3); Bilirubin, Total 0.5 mg/dL (0.2-1.2); CRP (Inflammatory) 8.83 mg/dL (= or < 0.5); Lipase 278 U/L (8-78); Protein, Total 5.8 g/dL (6.0-8.3)
[2021-05-13] MEDS: Insulin Regular 300 UNITS/3 ML VIAL SC PRN ×3 (04:48→17:09)
[2021-05-13] MEDS: Lorazepam 2 MG/ML VIAL SLOW IVP PRN (08:26)
[2021-05-13] MEDS ORDERED: cloNIDine 0.2mg/24 Hour PATCH TD SCH (09:00)
[2021-05-13] MEDS: Pantoprazole 40 MG GRANULES PACKET PO SCH (10:07)
[2021-05-13] MEDS: Minoxidil 2.5 MG TAB PO SCH (10:07)
[2021-05-13] MEDS: Metoprolol Tartrate 50 MG TAB PO SCH ×2 (10:07→20:08)
[2021-05-13] MEDS: Lantus 1000 UNITS/10 ML VIAL SC SCH ×2 (10:08→17:09)
[2021-05-13] MEDS: hydrALAZINE 25 MG TAB PER TUBE SCH ×3 (10:08→20:08)
[2021-05-13] MEDS ORDERED: Furosemide 40 MG/4 ML VIAL SLOW IVP SCH (11:00)
[2021-05-13] MEDS: Vancomycin 1 GM in Premix Bag 1 BAG IVPB SCH (11:59)
[2021-05-13] MEDS: Sodium Chloride 0.45% 1,000 ML IV SCH (13:17)
[2021-05-13] MEDS ORDERED: Micafungin 100 MG in Sodium Chloride 0.9% 100 ML IVPB SCH (15:30)
[2021-05-13] MEDS: Heparin 5,000 UNITS/ML VIAL SC SCH (20:08)
[2021-05-13] MEDS: Atorvastatin Calcium 10 MG TAB PO SCH (20:09)
[2021-05-13 23:17] LABS: SARS-CoV-2 PCR by NAA DETECTED (NotDetected)
[2021-05-14] MEDS: Meropenem 1 GM in Sodium Chloride 0.9% 100 ML IVPB SCH ×2 (04:10→15:16)
[2021-05-14] MEDS: Acetaminophen 325 MG TAB PO PRN (04:10)
[2021-05-14] MEDS: Insulin Regular 300 UNITS/3 ML VIAL SC PRN ×2 (04:10→17:40)
[2021-05-14 04:29] LABS: #Eosinphils 0.1 thou/uL (0.0-0.7); #Lymphocytes 0.7 thou/uL (1.20-3.40); #Monocytes 0.3 thou/uL (0.11-0.59); #Neutrophils 4.9 thou/uL (1.40-6.50); %Eosinophils 1.1 % (0.0-10.0); %Lymphocytes 11.4 % (21.0-51.0); %Monocytes 5.1 % (0.0-10.0); %Neutrophils 82.4 % (42.0-75.0); Hemoglobin 9.9 g/dL (14.0-18.0); Mean Corpuscular HGB CONC 31.2 g/dL (32.0-36.0); Mean Corpuscular Hemoglobin 24.4 pg (27.0-31.0); Mean Corpuscular Volume 78.3 fL (78.0-98.0); Mean Platelet Volume 9.5 fL (7.4-10.4); Platelet Count 170 thou/uL (130-400); RBC Distribution Width 22.5 % (11.5-14.5); Red Blood Cell (RBC) Count 4.07 mill/uL (4.70-6.10); White Blood Cell (WBC) Count 5.9 thou/uL (4.8-10.8)
[2021-05-14 04:46] LABS: Anion Gap 15 mmol/L (10-20); BUN (Urea Nitrogen) 77 mg/dL (8.4-25.7); Calc. Creatinine Clearance 37 mL/min (70-130); Calcium 7.9 mg/dL (7.8-10.44); Carbon Dioxide 19 mmol/L (22-29); Chloride 118 mmol/L (98-107); Glucose 179 mg/dL (70-105); Potassium 4.4 mmol/L (3.5-5.1); Sodium 148 mmol/L (136-145)
[2021-05-14] MEDS: Sodium Chloride 0.45% 1,000 ML IV SCH (06:04)
[2021-05-14] MEDS ORDERED: Magnesium 2 GM/50 ML 2 GM in Premix Bag 1 BAG IVPB SCH (08:30)
[2021-05-14] MEDS: Metoprolol Tartrate 50 MG TAB PO SCH ×2 (08:31→20:10)
[2021-05-14] MEDS: Heparin 5,000 UNITS/ML VIAL SC SCH ×2 (09:58→20:09)
[2021-05-14] MEDS: Lantus 1000 UNITS/10 ML VIAL SC SCH ×2 (09:59→17:40)
[2021-05-14] MEDS ORDERED: Albumin 25% 25 GM/100 ML BOT IVPB SCH (10:15)
[2021-05-14] MEDS: hydrALAZINE 25 MG TAB PER TUBE SCH ×3 (10:22→20:10)
[2021-05-14] MEDS: Pantoprazole 40 MG GRANULES PACKET PO SCH ×2 (10:22→10:40)
[2021-05-14] MEDS: Vancomycin 1 GM in Premix Bag 1 BAG IVPB SCH (10:47)
[2021-05-14] MEDS: Albumin 25% 25 GM/100 ML BOT IVPB SCH ×2 (12:54→17:54)
[2021-05-14] MEDS ORDERED: Micafungin 100 MG in Sodium Chloride 0.9% 100 ML IVPB SCH (15:00)
[2021-05-14] MEDS: Labetalol HCl 100 MG/20 ML VIAL SLOW IVP PRN (17:54)
[2021-05-14 18:40] LABS: Bilirubin Negative (Negative); Blood, Urine 2+ (Negative); Clarity Turbid (Clear); Glucose, Urine (Dipstick) 50 mg/dL (Negative); Ketone, Urine Negative (Negative); Leukocyte Negative Leu/uL (Negative); Nitrite Negative (Negative); Protein, Urine (Dipstick) 300 mg/dL (Neg-Trace); Specific Gravity, Urine 1.021 (1.002-1.036); Squamous Epithelial 0-3 HPF (0-3); WBC/HPF 0-3 HPF (0-3)
[2021-05-14 18:53] LABS: Bacteria/HPF 1+ HPF (None Seen)
[2021-05-14] MEDS: Atorvastatin Calcium 10 MG TAB PO SCH (20:09)
[2021-05-15] MEDS: Albumin 25% 25 GM/100 ML BOT IVPB SCH ×3 (00:44→12:04)
[2021-05-15] MEDS: Acetaminophen 325 MG TAB PO PRN (01:01)
[2021-05-15] MEDS: Meropenem 1 GM in Sodium Chloride 0.9% 100 ML IVPB SCH ×2 (03:46→15:21)
[2021-05-15] MEDS: Insulin Regular 300 UNITS/3 ML VIAL SC PRN ×3 (04:05→16:58)
[2021-05-15 04:36] LABS: #Eosinphils 0.1 thou/uL (0.0-0.7); #Lymphocytes 0.6 thou/uL (1.20-3.40); #Monocytes 0.2 thou/uL (0.11-0.59); #Neutrophils 3.7 thou/uL (1.40-6.50); %Basophils 0.3 % (0.0-1.0); %Eosinophils 1.2 % (0.0-10.0); %Lymphocytes 13.9 % (21.0-51.0); %Monocytes 4.5 % (0.0-10.0); %Neutrophils 80.2 % (42.0-75.0); Hemoglobin 9.2 g/dL (14.0-18.0); Mean Corpuscular HGB CONC 31.7 g/dL (32.0-36.0); Mean Corpuscular Hemoglobin 24.6 pg (27.0-31.0); Mean Corpuscular Volume 77.7 fL (78.0-98.0); Mean Platelet Volume 9.7 fL (7.4-10.4); Platelet Count 169 thou/uL (130-400); RBC Distribution Width 22.5 % (11.5-14.5); Red Blood Cell (RBC) Count 3.73 mill/uL (4.70-6.10); White Blood Cell (WBC) Count 4.6 thou/uL (4.8-10.8)
[2021-05-15 04:50] LABS: Anion Gap 15 mmol/L (10-20); BUN (Urea Nitrogen) 84 mg/dL (8.4-25.7); Calc. Creatinine Clearance 36 mL/min (70-130); Carbon Dioxide 19 mmol/L (22-29); Chloride 116 mmol/L (98-107); Glucose 169 mg/dL (70-105); Potassium 4.3 mmol/L (3.5-5.1); Sodium 146 mmol/L (136-145)
[2021-05-15 07:09] LABS: Actual Bicarbonate (HCO3v) 20 mEq/L (22-28); Base Excess -4.5 mEq/L (-2.0 to +3.0); Calcium, Ionized (venous) 1.05 mmol/L (1.16-1.32); Chloride (VBG) 116 mmol/L (98-106); Hemoglobin (Hb) 9.4 g/dL (13.1-17.2); Potassium (VBG) 4.18 mmol/L (3.70-5.30); Sodium 146.8 mmol/L (133-146); pH (venous) 7.39 (7.32-7.43)
[2021-05-15] MEDS ORDERED: Dexamethasone 10 MG in Sodium Chloride 0.9% 50 ML IVPB SCH (09:00)
[2021-05-15] MEDS: Metoprolol Tartrate 50 MG TAB PO SCH ×2 (09:18→21:42)
[2021-05-15] MEDS: Heparin 5,000 UNITS/ML VIAL SC SCH ×2 (09:18→21:40)
[2021-05-15] MEDS: Dexamethasone 10 MG/ML VIAL SLOW IVP SCH (09:18)
[2021-05-15] MEDS: Sodium Chloride 0.45% 1,000 ML IV SCH ×2 (09:18→15:24)
[2021-05-15] MEDS: hydrALAZINE 25 MG TAB PER TUBE SCH ×3 (09:20→21:39)
[2021-05-15] MEDS: Lantus 1000 UNITS/10 ML VIAL SC SCH ×2 (09:22→16:57)
[2021-05-15 10:22] LABS: Vancomycin, Trough 33.5 ug/mL
[2021-05-15] MEDS: Pantoprazole 40 MG GRANULES PACKET PO SCH (10:28)
[2021-05-15] MEDS: Vancomycin 1 GM in Premix Bag 1 BAG IVPB SCH (11:48)
[2021-05-15] MEDS: Lorazepam 2 MG/ML VIAL SLOW IVP PRN (14:09)
[2021-05-15] MEDS: Labetalol HCl 100 MG/20 ML VIAL SLOW IVP PRN (14:15)
[2021-05-15] MEDS: Micafungin 100 MG in Sodium Chloride 0.9% 100 ML IVPB SCH (16:47)
[2021-05-15] MEDS: Atorvastatin Calcium 10 MG TAB PO SCH (21:40)
[2021-05-16] MEDS: Insulin Regular 300 UNITS/3 ML VIAL SC PRN ×5 (00:32→21:57)
[2021-05-16] MEDS: Meropenem 1 GM in Sodium Chloride 0.9% 100 ML IVPB SCH (03:39)
[2021-05-16] MEDS: Sodium Chloride 0.45% 1,000 ML IV SCH ×2 (03:41→15:47)
[2021-05-16 05:14] LABS: Anion Gap 16 mmol/L (10-20); BUN (Urea Nitrogen) 97 mg/dL (8.4-25.7); Calc. Creatinine Clearance 34 mL/min (70-130); Calcium 8.1 mg/dL (7.8-10.44); Carbon Dioxide 19 mmol/L (22-29); Chloride 116 mmol/L (98-107); Glucose 221 mg/dL (70-105); Potassium 4.9 mmol/L (3.5-5.1); Sodium 146 mmol/L (136-145)
[2021-05-16 05:34] LABS: Band 13 % (5-11); Burr Cells SLIGHT = 2-5 cells (100X) (0-1/hpf); Elliptocytes SLIGHT = 2-5 cells (100X) (0-1/hpf); Hemoglobin 9.9 g/dL (14.0-18.0); Large Platelets SLIGHT; Lymphocytes 15 % (21-51); MDiff Complete? YES; Mean Corpuscular HGB CONC 31.4 g/dL (32.0-36.0); Mean Corpuscular Hemoglobin 24.6 pg (27.0-31.0); Mean Corpuscular Volume 78.5 fL (78.0-98.0); Mean Platelet Volume 9.8 fL (7.4-10.4); Monocytes 5 % (0-10); Neutrophil 67 % (42-75); Platelet Count 188 thou/uL (130-400); Platelet Morphology Comment Appears Adequate; Polychromasia SLIGHT = 2-3 cells (100X) (0-2/hpf); RBC Distribution Width 22.5 % (11.5-14.5); Schistocytes SLIGHT = 2-5 cells (100X) (0-1/hpf); Target Cells MODERATE= 6-15 cells (100X) (0-1/hpf)
[2021-05-16 07:47] LABS: Actual Bicarbonate (HCO3a) 19.7 mEq/L (22-28); CO2 Tension 35.2 mmHg (35.0-45.0); Calcium, Ionized (arterial) 1.15 mmol/L (1.12-1.30); Carboxyhemoglobin (COHb) 0.3 gm% (0.0-3.0); Hemoglobin (Hb) 10.5 g/dL (14.0-18.0); O2 Tension (PaO2), arterial 101.8 mmHg (80.0-100.0); Potassium - ABG Lab 4.77 mmol/L (3.70-5.30); pH, Arterial 7.37 (7.35-7.45)
[2021-05-16 07:50] LABS: Puncture Site RRA
[2021-05-16] MEDS: Metoprolol Tartrate 50 MG TAB PO SCH ×2 (09:03→21:36)
[2021-05-16] MEDS: Pantoprazole 40 MG GRANULES PACKET PO SCH (09:04)
[2021-05-16] MEDS: hydrALAZINE 25 MG TAB PER TUBE SCH ×3 (09:05→21:36)
[2021-05-16] MEDS: Heparin 5,000 UNITS/ML VIAL SC SCH ×2 (09:05→21:35)
[2021-05-16] MEDS: Dexamethasone 10 MG/ML VIAL SLOW IVP SCH (09:09)
[2021-05-16] MEDS: Lantus 1000 UNITS/10 ML VIAL SC SCH ×2 (10:47→16:24)
[2021-05-16] MEDS ORDERED: Vancomycin 1 GM in Premix Bag 1 BAG IVPB SCH (11:00)
[2021-05-16] MEDS: Micafungin 100 MG in Sodium Chloride 0.9% 100 ML IVPB SCH (15:47)
[2021-05-16] MEDS: Meropenem 500 MG in Sodium Chloride 0.9% 100 ML IVPB SCH (15:48)
[2021-05-16] MEDS: Atorvastatin Calcium 10 MG TAB PO SCH (21:41)
[2021-05-17] MEDS: Sodium Chloride 0.45% 1,000 ML IV SCH ×3 (01:40→22:04)
[2021-05-17] MEDS: Meropenem 500 MG in Sodium Chloride 0.9% 100 ML IVPB SCH ×2 (03:45→15:19)
[2021-05-17] MEDS: Insulin Regular 300 UNITS/3 ML VIAL SC PRN ×3 (03:59→22:40)
[2021-05-17 04:18] LABS: #Lymphocytes 0.5 thou/uL (1.20-3.40); #Monocytes 0.5 thou/uL (0.11-0.59); %Lymphocytes 9.7 % (21.0-51.0); %Monocytes 9.4 % (0.0-10.0); %Neutrophils 80.9 % (42.0-75.0); Hemoglobin 9.5 g/dL (14.0-18.0); Mean Corpuscular HGB CONC 31.1 g/dL (32.0-36.0); Mean Corpuscular Hemoglobin 24.3 pg (27.0-31.0); Mean Corpuscular Volume 78.2 fL (78.0-98.0); Mean Platelet Volume 8.9 fL (7.4-10.4); Platelet Count 249 thou/uL (130-400); RBC Distribution Width 23.3 % (11.5-14.5); Red Blood Cell (RBC) Count 3.91 mill/uL (4.70-6.10)
[2021-05-17 04:35] LABS: Anion Gap 14 mmol/L (10-20); BUN (Urea Nitrogen) 113 mg/dL (8.4-25.7); Calc. Creatinine Clearance 33 mL/min (70-130); Calcium 8.3 mg/dL (7.8-10.44); Carbon Dioxide 20 mmol/L (22-29); Chloride 115 mmol/L (98-107); Glucose 249 mg/dL (70-105); Potassium 5.1 mmol/L (3.5-5.1); Sodium 144 mmol/L (136-145)
[2021-05-17] MEDS: Dexamethasone 10 MG/ML VIAL SLOW IVP SCH (07:52)
[2021-05-17] MEDS: hydrALAZINE 25 MG TAB PER TUBE SCH ×3 (07:53→22:02)
[2021-05-17] MEDS: Heparin 5,000 UNITS/ML VIAL SC SCH ×2 (07:53→22:03)
[2021-05-17] MEDS: Metoprolol Tartrate 50 MG TAB PO SCH ×2 (07:53→22:02)
[2021-05-17] MEDS: Lantus 1000 UNITS/10 ML VIAL SC SCH ×2 (07:54→16:52)
[2021-05-17] MEDS: Pantoprazole 40 MG GRANULES PACKET PO SCH (07:56)
[2021-05-17] MEDS: Micafungin 100 MG in Sodium Chloride 0.9% 100 ML IVPB SCH (16:51)
[2021-05-17] MEDS: Atorvastatin Calcium 10 MG TAB PO SCH (22:02)
[2021-05-18] MEDS: Meropenem 500 MG in Sodium Chloride 0.9% 100 ML IVPB SCH ×2 (03:52→15:31)
[2021-05-18] MEDS: Insulin Regular 300 UNITS/3 ML VIAL SC PRN ×4 (03:53→21:59)
[2021-05-18 04:18] LABS: Anion Gap 16 mmol/L (10-20); Calc. Creatinine Clearance 32 mL/min (70-130); Carbon Dioxide 17 mmol/L (22-29); Chloride 116 mmol/L (98-107); Glucose 322 mg/dL (70-105); Potassium 5.2 mmol/L (3.5-5.1); Sodium 144 mmol/L (136-145)
[2021-05-18 04:27] LABS: #Lymphocytes 0.4 thou/uL (1.20-3.40); #Monocytes 0.5 thou/uL (0.11-0.59); #Neutrophils 5.3 thou/uL (1.40-6.50); %Eosinophils 0.2 % (0.0-10.0); %Lymphocytes 6.8 % (21.0-51.0); %Monocytes 8.3 % (0.0-10.0); %Neutrophils 84.6 % (42.0-75.0); Burr Cells SLIGHT = 2-5 cells (100X) (0-1/hpf); Hemoglobin 9.8 g/dL (14.0-18.0); Large Platelets SLIGHT; MDiff Complete? YES; Mean Corpuscular Hemoglobin 24.3 pg (27.0-31.0); Mean Corpuscular Volume 78.2 fL (78.0-98.0); Mean Platelet Volume 7.8 fL (7.4-10.4); Platelet Count 274 thou/uL (130-400); Platelet Morphology Comment Appears Adequate; Polychromasia MODERATE = 3-4 cells (100X) (0-2/hpf); RBC Distribution Width 23.2 % (11.5-14.5); Red Blood Cell (RBC) Count 4.06 mill/uL (4.70-6.10); Schistocytes SLIGHT = 2-5 cells (100X) (0-1/hpf); Target Cells MODERATE= 6-15 cells (100X) (0-1/hpf); White Blood Cell (WBC) Count 6.2 thou/uL (4.8-10.8)
[2021-05-18 04:30] LABS: BUN (Urea Nitrogen) 122 mg/dL (8.4-25.7)
[2021-05-18] MEDS: Sodium Chloride 0.45% 1,000 ML IV SCH ×3 (06:35→17:01)
[2021-05-18] MEDS: Dexamethasone 10 MG/ML VIAL SLOW IVP SCH (09:27)
[2021-05-18] MEDS: Heparin 5,000 UNITS/ML VIAL SC SCH ×2 (09:29→21:13)
[2021-05-18] MEDS: hydrALAZINE 25 MG TAB PER TUBE SCH ×3 (09:30→21:12)
[2021-05-18] MEDS: Metoprolol Tartrate 50 MG TAB PO SCH ×2 (09:31→21:13)
[2021-05-18] MEDS ORDERED: Pantoprazole 40 MG VIAL ONE (09:32)
[2021-05-18] MEDS: Pantoprazole 40 MG VIAL IVP SCH (09:33)
[2021-05-18] MEDS: Lantus 1000 UNITS/10 ML VIAL SC SCH ×3 (10:13→17:00)
[2021-05-18] MEDS: Pantoprazole 40 MG GRANULES PACKET PO SCH (10:14)
[2021-05-18] MEDS: Micafungin 100 MG in Sodium Chloride 0.9% 100 ML IVPB SCH (15:31)
[2021-05-18] MEDS: Atorvastatin Calcium 10 MG TAB PO SCH (21:13)
[2021-05-19] MEDS: Sodium Chloride 0.45% 1,000 ML IV SCH ×4 (03:51→21:34)
[2021-05-19] MEDS: Insulin Regular 300 UNITS/3 ML VIAL SC PRN ×4 (03:52→20:52)
[2021-05-19 04:23] LABS: Anion Gap 15 mmol/L (10-20); Calc. Creatinine Clearance 33 mL/min (70-130); Calcium 8.2 mg/dL (7.8-10.44); Carbon Dioxide 19 mmol/L (22-29); Chloride 114 mmol/L (98-107); Glucose 335 mg/dL (70-105); Potassium 5.1 mmol/L (3.5-5.1); Sodium 143 mmol/L (136-145)
[2021-05-19 04:34] LABS: BUN (Urea Nitrogen) 136 mg/dL (8.4-25.7)
[2021-05-19 05:43] LABS: Anisocytosis SLIGHT = 6-15 cells (100X) (0-5/hpf); Band 5 % (5-11); Elliptocytes SLIGHT = 2-5 cells (100X) (0-1/hpf); Hemoglobin 10.9 g/dL (14.0-18.0); Lymphocytes 9 % (21-51); MDiff Complete? YES; Mean Corpuscular HGB CONC 30.1 g/dL (32.0-36.0); Mean Corpuscular Hemoglobin 23.2 pg (27.0-31.0); Monocytes 6 % (0-10); Neutrophil 80 % (42-75); Platelet Count 303 thou/uL (130-400); RBC Distribution Width 22.5 % (11.5-14.5); White Blood Cell (WBC) Count 7.7 thou/uL (4.8-10.8)
[2021-05-19] MEDS: Dexamethasone 10 MG/ML VIAL SLOW IVP SCH (09:04)
[2021-05-19] MEDS: Heparin 5,000 UNITS/ML VIAL SC SCH ×2 (09:04→20:51)
[2021-05-19] MEDS: hydrALAZINE 25 MG TAB PER TUBE SCH ×3 (09:05→20:50)
[2021-05-19] MEDS: Pantoprazole 40 MG VIAL IVP SCH (09:05)
[2021-05-19] MEDS: Metoprolol Tartrate 50 MG TAB PO SCH ×2 (09:05→20:50)
[2021-05-19] MEDS: Lantus 1000 UNITS/10 ML VIAL SC SCH ×3 (09:07→17:45)
[2021-05-19] MEDS ORDERED: fentaNYL Citrate-0.9 % NaCl/PF 100 ML IV SCH (12:45)
[2021-05-19] MEDS: Micafungin 100 MG in Sodium Chloride 0.9% 100 ML IVPB SCH (17:45)
[2021-05-19] MEDS: Atorvastatin Calcium 10 MG TAB PO SCH (21:00)
[2021-05-20 04:33] LABS: Hemoglobin 11.9 g/dL (14.0-18.0); Mean Corpuscular HGB CONC 30.9 g/dL (32.0-36.0); Mean Corpuscular Volume 77.7 fL (78.0-98.0); Platelet Count 313 thou/uL (130-400); RBC Distribution Width 23.5 % (11.5-14.5); Red Blood Cell (RBC) Count 4.94 mill/uL (4.70-6.10); White Blood Cell (WBC) Count 9.1 thou/uL (4.8-10.8)
[2021-05-20 04:43] LABS: Anion Gap 14 mmol/L (10-20); Calc. Creatinine Clearance 0 mL/min (70-130); Calcium 8.2 mg/dL (7.8-10.44); Carbon Dioxide 19 mmol/L (22-29); Chloride 116 mmol/L (98-107); Glucose 394 mg/dL (70-105); Potassium 5.1 mmol/L (3.5-5.1); Sodium 144 mmol/L (136-145)
[2021-05-20 04:54] LABS: BUN (Urea Nitrogen) 133 mg/dL (8.4-25.7)
[2021-05-20 05:02] LABS: #Lymphocytes 0.6 thou/uL (1.20-3.40); #Monocytes 0.9 thou/uL (0.11-0.59); #Neutrophils 7.6 thou/uL (1.40-6.50); %Basophils 0.1 % (0.0-1.0); %Eosinophils 0.2 % (0.0-10.0); %Lymphocytes 6.6 % (21.0-51.0); %Neutrophils 83.1 % (42.0-75.0); Anisocytosis SLIGHT = 6-15 cells (100X) (0-5/hpf); Hypochromia SLIGHT = 6-15 cells (100X) (0-5/hpf); Large Platelets SLIGHT; MDiff Complete? YES; Microcytosis SLIGHT = 6-15 cells (100X) (0-5/hpf); Platelet Morphology Comment Appears Adequate
[2021-05-20] MEDS: Sodium Chloride 0.45% 1,000 ML IV SCH ×3 (05:37→20:59)
[2021-05-20] MEDS: Insulin Regular 300 UNITS/3 ML VIAL SC PRN ×2 (05:37→21:48)
[2021-05-20] MEDS: Pantoprazole 40 MG VIAL IVP SCH (08:10)
[2021-05-20] MEDS: hydrALAZINE 20 MG/ML VIAL SLOW IVP PRN (08:11)
[2021-05-20] MEDS: Dexamethasone 10 MG/ML VIAL SLOW IVP SCH (08:11)
[2021-05-20] MEDS: hydrALAZINE 25 MG TAB PER TUBE SCH ×3 (08:12→20:56)
[2021-05-20] MEDS: Metoprolol Tartrate 50 MG TAB PO SCH ×2 (08:12→20:55)
[2021-05-20] MEDS: Heparin 5,000 UNITS/ML VIAL SC SCH ×2 (08:12→20:56)
[2021-05-20] MEDS: Lantus 1000 UNITS/10 ML VIAL SC SCH ×2 (08:17→16:58)
[2021-05-20] MEDS: Micafungin 100 MG in Sodium Chloride 0.9% 100 ML IVPB SCH (16:58)
[2021-05-20] MEDS: Atorvastatin Calcium 10 MG TAB PO SCH (20:55)
[2021-05-21] MEDS: hydrALAZINE 20 MG/ML VIAL SLOW IVP PRN (02:20)
[2021-05-21 04:46] LABS: Anion Gap 15 mmol/L (10-20); Calc. Creatinine Clearance 0 mL/min (70-130); Calcium 8.5 mg/dL (7.8-10.44); Carbon Dioxide 18 mmol/L (22-29); Chloride 119 mmol/L (98-107); Glucose 322 mg/dL (70-105); Potassium 5.1 mmol/L (3.5-5.1); Sodium 147 mmol/L (136-145)
[2021-05-21 05:00] LABS: BUN (Urea Nitrogen) 136 mg/dL (8.4-25.7)
[2021-05-21] MEDS: Insulin Regular 300 UNITS/3 ML VIAL SC PRN ×2 (06:18→10:37)
[2021-05-21 06:22] LABS: Anisocytosis SLIGHT = 6-15 cells (100X) (0-5/hpf); Band 5 % (5-11); Hemoglobin 11.9 g/dL (14.0-18.0); Lymphocytes 8 % (21-51); MDiff Complete? YES; Mean Corpuscular HGB CONC 30.7 g/dL (32.0-36.0); Mean Corpuscular Hemoglobin 24.2 pg (27.0-31.0); Mean Corpuscular Volume 78.8 fL (78.0-98.0); Mean Platelet Volume 7.4 fL (7.4-10.4); Monocytes 2 % (0-10); Neutrophil 85 % (42-75); Platelet Count 343 thou/uL (130-400); RBC Distribution Width 23.3 % (11.5-14.5); Red Blood Cell (RBC) Count 4.92 mill/uL (4.70-6.10); White Blood Cell (WBC) Count 10.5 thou/uL (4.8-10.8)
[2021-05-21] MEDS ORDERED: Fentanyl BOLUS 250 ML IVPB PRN (09:17)
[2021-05-21] MEDS ORDERED: Lorazepam 2 MG/ML VIAL SLOW IVP PRN (09:17)
[2021-05-21] MEDS: Lantus 1000 UNITS/10 ML VIAL SC SCH ×2 (09:48→16:08)
[2021-05-21] MEDS: Pantoprazole 40 MG VIAL IVP SCH (09:50)
[2021-05-21] MEDS: Heparin 5,000 UNITS/ML VIAL SC SCH ×2 (09:50→20:37)
[2021-05-21] MEDS: Dexamethasone 10 MG/ML VIAL SLOW IVP SCH (09:52)
[2021-05-21] MEDS: hydrALAZINE 25 MG TAB PER TUBE SCH ×3 (09:53→20:38)
[2021-05-21] MEDS: Metoprolol Tartrate 50 MG TAB PO SCH ×2 (09:53→20:36)
[2021-05-21] MEDS: Sodium Chloride 0.45% 1,000 ML IV SCH ×3 (10:11→20:39)
[2021-05-21] MEDS ORDERED: Dextrose 50% Abboject 50 ML SYRINGE SLOW IVP PRN (10:48)
[2021-05-21] MEDS ORDERED: Dextrose 5% in Water 1,000 ML IV PRN (10:48)
[2021-05-21] MEDS ORDERED: Amlodipine 5 MG TAB PO SCH (12:00)
[2021-05-21] MEDS: Micafungin 100 MG in Sodium Chloride 0.9% 100 ML IVPB SCH (14:50)
[2021-05-21] MEDS: HumaLOG 300 UNITS/3 ML VIAL SC PRN ×2 (16:21→22:26)
[2021-05-21] MEDS: Atorvastatin Calcium 10 MG TAB PO SCH (20:38)
[2021-05-22] MEDS: Sodium Chloride 0.45% 1,000 ML IV SCH ×3 (00:44→17:48)
[2021-05-22] MEDS: HumaLOG 300 UNITS/3 ML VIAL SC PRN ×3 (04:42→22:24)
[2021-05-22 05:50] LABS: Band 2 % (5-11); Hemoglobin 12.1 g/dL (14.0-18.0); Hypochromia SLIGHT = 6-15 cells (100X) (0-5/hpf); Lymphocytes 6 % (21-51); MDiff Complete? YES; Mean Corpuscular HGB CONC 30.2 g/dL (32.0-36.0); Mean Corpuscular Hemoglobin 23.8 pg (27.0-31.0); Mean Corpuscular Volume 78.8 fL (78.0-98.0); Monocytes 11 % (0-10); Neutrophil 81 % (42-75); Nucleated RBC 1 % (0); Platelet Count 316 thou/uL (130-400); Platelet Morphology Comment Appears Adequate; RBC Distribution Width 24.5 % (11.5-14.5); Red Blood Cell (RBC) Count 5.09 mill/uL (4.70-6.10); White Blood Cell (WBC) Count 10.9 thou/uL (4.8-10.8)
[2021-05-22] MEDS: Pantoprazole 40 MG VIAL IVP SCH (08:24)
[2021-05-22] MEDS: hydrALAZINE 25 MG TAB PER TUBE SCH ×3 (08:25→21:53)
[2021-05-22] MEDS: Amlodipine 5 MG TAB PO SCH (08:25)
[2021-05-22] MEDS: Heparin 5,000 UNITS/ML VIAL SC SCH ×2 (08:25→21:53)
[2021-05-22] MEDS: Dexamethasone 10 MG/ML VIAL SLOW IVP SCH (08:25)
[2021-05-22] MEDS: Metoprolol Tartrate 50 MG TAB PO SCH ×2 (08:25→21:52)
[2021-05-22] MEDS: Lantus 1000 UNITS/10 ML VIAL SC SCH ×2 (08:26→17:48)
[2021-05-22] MEDS: Micafungin 100 MG in Sodium Chloride 0.9% 100 ML IVPB SCH (17:47)
[2021-05-22 19:26] LABS: Anion Gap 17 mmol/L (10-20); Calc. Creatinine Clearance 44 mL/min (70-130); Calcium 8.4 mg/dL (7.8-10.44); Carbon Dioxide 15 mmol/L (22-29); Chloride 119 mmol/L (98-107); Potassium 5.2 mmol/L (3.5-5.1); Sodium 146 mmol/L (136-145)
[2021-05-22 20:21] LABS: Glucose 262 mg/dL (70-105)
[2021-05-22 20:53] LABS: BUN (Urea Nitrogen) 133 mg/dL (8.4-25.7)
[2021-05-22] MEDS: Atorvastatin Calcium 10 MG TAB PO SCH (21:53)
[2021-05-23] MEDS: Sodium Chloride 0.45% 1,000 ML IV SCH ×5 (01:30→21:16)
[2021-05-23] MEDS: HumaLOG 300 UNITS/3 ML VIAL SC PRN ×4 (06:18→21:17)
[2021-05-23 08:00] LABS: Anion Gap 16 mmol/L (10-20); Calc. Creatinine Clearance 50 mL/min (70-130); Calcium 8.4 mg/dL (7.8-10.44); Carbon Dioxide 14 mmol/L (22-29); Chloride 124 mmol/L (98-107); Glucose 288 mg/dL (70-105); Potassium 5.3 mmol/L (3.5-5.1); Sodium 149 mmol/L (136-145)
[2021-05-23 08:12] LABS: BUN (Urea Nitrogen) 132 mg/dL (8.4-25.7)
[2021-05-23] MEDS: Metoprolol Tartrate 50 MG TAB PO SCH ×2 (08:27→21:17)
[2021-05-23] MEDS: Amlodipine 5 MG TAB PO SCH (08:28)
[2021-05-23] MEDS: Pantoprazole 40 MG VIAL IVP SCH (08:29)
[2021-05-23] MEDS: hydrALAZINE 25 MG TAB PER TUBE SCH ×3 (08:29→21:18)
[2021-05-23] MEDS: Dexamethasone 10 MG/ML VIAL SLOW IVP SCH (08:31)
[2021-05-23] MEDS: Heparin 5,000 UNITS/ML VIAL SC SCH ×2 (08:32→21:18)
[2021-05-23] MEDS: Lantus 1000 UNITS/10 ML VIAL SC SCH ×2 (08:38→18:44)
[2021-05-23] MEDS: Sodium Bicarbonate Tab 325 MG TAB PO SCH ×2 (14:04→21:17)
[2021-05-23] MEDS ORDERED: Sodium Chloride 0.9% (5 ML) NEB NEB PRN (19:12)
[2021-05-23] MEDS ORDERED: Piperacillin/Tazobactam 3.375 GM in Sodium Chloride 0.9% 100 ML IVPB SCH (21:00)
[2021-05-23] MEDS: Atorvastatin Calcium 10 MG TAB PO SCH (21:18)
[2021-05-23] MEDS: Scopolamine 1.5 mg/72 hour Patch TD SCH (21:19)
[2021-05-23 21:48] LABS: Hemoglobin 11.3 g/dL (14.0-18.0); Mean Corpuscular HGB CONC 29.1 g/dL (32.0-36.0); Mean Corpuscular Hemoglobin 23.1 pg (27.0-31.0); Mean Corpuscular Volume 79.4 fL (78.0-98.0); Mean Platelet Volume 8.2 fL (7.4-10.4); Platelet Count 320 thou/uL (130-400); RBC Distribution Width 24.5 % (11.5-14.5); White Blood Cell (WBC) Count 11.6 thou/uL (4.8-10.8)
[2021-05-23] MEDS ORDERED: VANCOMYCIN 1.75 GM/350 ML BAG 1.75 GM in Premix Bag 1 BAG IVPB SCH (22:00)
[2021-05-23 22:06] LABS: #Lymphocytes 0.3 thou/uL (1.20-3.40); #Neutrophils 10.3 thou/uL (1.40-6.50); %Eosinophils 0.2 % (0.0-10.0); %Lymphocytes 2.4 % (21.0-51.0); %Monocytes 8.4 % (0.0-10.0); Anisocytosis SLIGHT = 6-15 cells (100X) (0-5/hpf); MDiff Complete? YES
[2021-05-24] MEDS: Piperacillin/Tazobactam 3.375 GM in Sodium Chloride 0.9% 100 ML IVPB SCH ×3 (01:50→16:30)
[2021-05-24] MEDS ORDERED: Morphine 4 MG/ML VIAL SLOW IVP SCH (03:00)
[2021-05-24 07:49] LABS: Anion Gap 14 mmol/L (10-20); Calc. Creatinine Clearance 47 mL/min (70-130); Calcium 8.2 mg/dL (7.8-10.44); Carbon Dioxide 17 mmol/L (22-29); Glucose 198 mg/dL (70-105); Potassium 5.2 mmol/L (3.5-5.1); Sodium 153 mmol/L (136-145)
[2021-05-24 07:51] LABS: Chloride 127 mmol/L (98-107)
[2021-05-24 08:01] LABS: BUN (Urea Nitrogen) 133 mg/dL (8.4-25.7)
[2021-05-24] MEDS: Sodium Bicarbonate Tab 325 MG TAB PO SCH ×3 (08:46→21:37)
[2021-05-24] MEDS: Metoprolol Tartrate 50 MG TAB PO SCH ×2 (08:46→21:37)
[2021-05-24] MEDS: hydrALAZINE 25 MG TAB PER TUBE SCH ×3 (08:47→21:37)
[2021-05-24] MEDS: Amlodipine 5 MG TAB PO SCH (08:47)
[2021-05-24] MEDS: Heparin 5,000 UNITS/ML VIAL SC SCH ×2 (08:53→22:57)
[2021-05-24] MEDS: Pantoprazole 40 MG VIAL IVP SCH (08:54)
[2021-05-24] MEDS: Dexamethasone 10 MG/ML VIAL SLOW IVP SCH (08:55)
[2021-05-24] MEDS: Lantus 1000 UNITS/10 ML VIAL SC SCH ×2 (08:57→16:58)
[2021-05-24] MEDS: HumaLOG 300 UNITS/3 ML VIAL SC PRN (08:59)
[2021-05-24] MEDS: Sodium Chloride 0.45% 1,000 ML IV SCH (13:01)
[2021-05-24] MEDS ORDERED: Lactated Ringer's 1,000 ML IV SCH ×2 (14:00→17:17)
[2021-05-24 14:10] VITALS: BMI 38.9
[2021-05-24] MEDS: Lactated Ringer's 1,000 ML IV SCH (21:36)
[2021-05-24] MEDS: Atorvastatin Calcium 10 MG TAB PO SCH (21:37)
[2021-05-24] MEDS: VANCOMYCIN 1.25 GM/250 ML BAG 1.25 GM in Premix Bag 1 BAG IVPB SCH (21:45)
[2021-05-24 22:03] LABS: Actual Bicarbonate (HCO3a) 17.4 mEq/L (22-28); Base Excess (BEa) -5.8 mEq/L (-2.0 to +3.0); Calcium, Ionized (arterial) 1.22 mmol/L (1.12-1.30); Carboxyhemoglobin (COHb) 0.6 gm% (0.0-3.0); Hemoglobin (Hb) 12.8 g/dL (14.0-18.0); Potassium - ABG Lab 4.96 mmol/L (3.70-5.30); pH, Arterial 7.41 (7.35-7.45)
[2021-05-24 22:04] LABS: O2 Tension (PaO2), arterial 59.5 mmHg (80.0-100.0); Puncture Site LRA
[2021-05-24] MEDS: Acetaminophen 325 MG TAB PO PRN (22:56)
[2021-05-25] MEDS: Piperacillin/Tazobactam 3.375 GM in Sodium Chloride 0.9% 100 ML IVPB SCH ×3 (00:35→17:53)
[2021-05-25] MEDS: hydrALAZINE 20 MG/ML VIAL SLOW IVP PRN (02:25)
[2021-05-25] MEDS: Dextrose 50% Abboject 50 ML SYRINGE SLOW IVP PRN (02:25)
[2021-05-25 05:04] LABS: BUN (Urea Nitrogen) 133 mg/dL (8.4-25.7)
[2021-05-25] MEDS: Labetalol HCl 100 MG/20 ML VIAL SLOW IVP PRN (05:05)
[2021-05-25] MEDS ORDERED: Amlodipine 5 MG TAB PO SCH ×2 (09:20→09:45)
[2021-05-25] MEDS: Metoprolol Tartrate 50 MG TAB PO SCH ×2 (09:40→21:24)
[2021-05-25] MEDS: Dexamethasone 10 MG/ML VIAL SLOW IVP SCH (09:41)
[2021-05-25] MEDS: hydrALAZINE 25 MG TAB PER TUBE SCH ×3 (09:41→21:22)
[2021-05-25] MEDS: Sodium Bicarbonate Tab 325 MG TAB PO SCH ×3 (09:41→21:26)
[2021-05-25] MEDS: Pantoprazole 40 MG VIAL IVP SCH (09:42)
[2021-05-25] MEDS: Lantus 1000 UNITS/10 ML VIAL SC SCH ×2 (09:43→17:54)
[2021-05-25] MEDS: Heparin 5,000 UNITS/ML VIAL SC SCH ×2 (09:43→21:21)
[2021-05-25 10:24] LABS: Anion Gap 19 mmol/L (10-20); Calc. Creatinine Clearance 42 mL/min (70-130); Calcium 8.7 mg/dL (7.8-10.44); Carbon Dioxide 14 mmol/L (22-29); Glucose 105 mg/dL (70-105); Sodium 155 mmol/L (136-145)
[2021-05-25] MEDS: Amlodipine 5 MG TAB PO SCH (10:27)
[2021-05-25 10:49] LABS: Chloride 127 mmol/L (98-107)
[2021-05-25] MEDS: Lactated Ringer's 1,000 ML IV SCH (13:37)
[2021-05-25] MEDS: Atorvastatin Calcium 10 MG TAB PO SCH (21:22)
[2021-05-25 21:24] LABS: Vancomycin, Trough 17.6 ug/mL
[2021-05-25] MEDS: VANCOMYCIN 1.25 GM/250 ML BAG 1.25 GM in Premix Bag 1 BAG IVPB SCH (21:26)
[2021-05-26] MEDS: Piperacillin/Tazobactam 3.375 GM in Sodium Chloride 0.9% 100 ML IVPB SCH ×3 (01:19→17:46)
[2021-05-26 04:33] LABS: Anion Gap 19 mmol/L (10-20); Calc. Creatinine Clearance 44 mL/min (70-130); Calcium 8.3 mg/dL (7.8-10.44); Carbon Dioxide 10 mmol/L (22-29); Glucose 352 mg/dL (70-105); Potassium 5.9 mmol/L (3.5-5.1); Sodium 155 mmol/L (136-145)
[2021-05-26 04:37] LABS: BUN (Urea Nitrogen) Greater than 125 mg/dL (8.4-25.7); Chloride 132 mmol/L (98-107)
[2021-05-26] MEDS ORDERED: Dextrose 5% in Water 1,000 ML IV SCH (06:30)
[2021-05-26] MEDS: HumaLOG 300 UNITS/3 ML VIAL SC PRN ×4 (06:36→23:03)
[2021-05-26] MEDS: Lactated Ringer's 1,000 ML IV SCH (06:57)
[2021-05-26] MEDS ORDERED: LOKELMA 5 GM PACKET PER TUBE SCH (07:45)
[2021-05-26] MEDS: Metoprolol Tartrate 50 MG TAB PO SCH ×2 (09:26→20:32)
[2021-05-26] MEDS: Sodium Bicarbonate Tab 325 MG TAB PO SCH ×3 (09:26→20:32)
[2021-05-26] MEDS: hydrALAZINE 25 MG TAB PER TUBE SCH ×3 (09:26→20:32)
[2021-05-26] MEDS: Pantoprazole 40 MG VIAL IVP SCH (09:27)
[2021-05-26] MEDS: Amlodipine 10 MG TAB PO SCH (09:27)
[2021-05-26] MEDS: Dexamethasone 10 MG/ML VIAL SLOW IVP SCH (09:27)
[2021-05-26] MEDS: Heparin 5,000 UNITS/ML VIAL SC SCH ×2 (09:28→20:32)
[2021-05-26] MEDS: Lantus 1000 UNITS/10 ML VIAL SC SCH ×2 (09:30→17:47)
[2021-05-26] MEDS: Sodium Chloride 3% (15 ML) NEB NEB SCH ×2 (14:42→18:37)
[2021-05-26] MEDS: Atorvastatin Calcium 10 MG TAB PO SCH (20:32)
[2021-05-26] MEDS: Scopolamine 1.5 mg/72 hour Patch TD SCH (20:32)
[2021-05-26] MEDS: VANCOMYCIN 1.25 GM/250 ML BAG 1.25 GM in Premix Bag 1 BAG IVPB SCH (23:02)
[2021-05-27] MEDS: Piperacillin/Tazobactam 3.375 GM in Sodium Chloride 0.9% 100 ML IVPB SCH ×3 (01:38→16:50)
[2021-05-27 05:49] LABS: Anion Gap 18 mmol/L (10-20); Calc. Creatinine Clearance 45 mL/min (70-130); Calcium 8.4 mg/dL (7.8-10.44); Carbon Dioxide 16 mmol/L (22-29); Glucose 332 mg/dL (70-105); Sodium 158 mmol/L (136-145)
[2021-05-27 05:52] LABS: BUN (Urea Nitrogen) Greater than 125 mg/dL (8.4-25.7); Chloride 129 mmol/L (98-107)
[2021-05-27] MEDS: HumaLOG 300 UNITS/3 ML VIAL SC PRN ×3 (05:58→16:49)
[2021-05-27] MEDS: Sodium Chloride 3% (15 ML) NEB NEB SCH (07:48)
[2021-05-27] MEDS: Amlodipine 10 MG TAB PO SCH (08:15)
[2021-05-27] MEDS: Sodium Bicarbonate Tab 325 MG TAB PO SCH ×3 (08:15→21:19)
[2021-05-27] MEDS: Pantoprazole 40 MG VIAL IVP SCH (08:16)
[2021-05-27] MEDS: hydrALAZINE 25 MG TAB PER TUBE SCH ×3 (08:16→21:19)
[2021-05-27] MEDS: Metoprolol Tartrate 50 MG TAB PO SCH ×2 (08:16→21:19)
[2021-05-27] MEDS: Heparin 5,000 UNITS/ML VIAL SC SCH ×2 (08:16→21:19)
[2021-05-27] MEDS: Lantus 1000 UNITS/10 ML VIAL SC SCH ×2 (08:18→16:46)
[2021-05-27] MEDS: Sodium Chloride 0.45% 1,000 ML IV SCH (13:35)
[2021-05-27] MEDS ORDERED: Piperacillin/Tazobactam 2.25 GM in Sodium Chloride 0.9% 100 ML IVPB SCH (14:00)
[2021-05-27] MEDS: Acetaminophen 650 MG Suppository PR PRN (20:15)
[2021-05-27] MEDS: Atorvastatin Calcium 10 MG TAB PO SCH (21:18)
[2021-05-27 21:52] LABS: Hemoglobin 12.3 g/dL (14.0-18.0); Mean Corpuscular HGB CONC 29.4 g/dL (32.0-36.0); Mean Corpuscular Hemoglobin 24.1 pg (27.0-31.0); Mean Corpuscular Volume 82.1 fL (78.0-98.0); Mean Platelet Volume 10.1 fL (7.4-10.4); Platelet Count 147 thou/uL (130-400); RBC Distribution Width 24.8 % (11.5-14.5); Red Blood Cell (RBC) Count 5.08 mill/uL (4.70-6.10); White Blood Cell (WBC) Count 24.2 thou/uL (4.8-10.8)
[2021-05-27 21:53] LABS: Band 11 % (5-11); Hypochromia SLIGHT = 6-15 cells (100X) (0-5/hpf); Lymphocytes 9 % (21-51); MDiff Complete? YES; Monocytes 3 % (0-10); Neutrophil 77 % (42-75); Platelet Morphology Comment Appears Adequate
[2021-05-27 21:54] LABS: Vancomycin, Trough 29.9 ug/mL
[2021-05-27 21:55] LABS: Anion Gap 16 mmol/L (10-20); Calc. Creatinine Clearance 46 mL/min (70-130); Calcium 8.4 mg/dL (7.8-10.44); Carbon Dioxide 16 mmol/L (22-29); Glucose 168 mg/dL (70-105); Potassium 4.4 mmol/L (3.5-5.1); Sodium 159 mmol/L (136-145)
[2021-05-27 21:59] LABS: Chloride 131 mmol/L (98-107)
[2021-05-27 22:06] LABS: BUN (Urea Nitrogen) 123 mg/dL (8.4-25.7)
[2021-05-27 23:13] LABS: Base Excess (BEa) -11.3 mEq/L (-2.0 to +3.0); Calcium, Ionized (arterial) 1.27 mmol/L (1.12-1.30); Carboxyhemoglobin (COHb) 0.3 gm% (0.0-3.0); Hemoglobin (Hb) 12.7 g/dL (14.0-18.0); Potassium - ABG Lab 4.13 mmol/L (3.70-5.30); pH, Arterial 7.33 (7.35-7.45)
[2021-05-27 23:16] LABS: CO2 Tension 25.5 mmHg (35.0-45.0); Puncture Site RRA
[2021-05-27 23:17] LABS: ALV-art Gradient 602.865 mmHg (0-20)
[2021-05-27] MEDS ORDERED: Lorazepam 2 MG/ML VIAL ONE (23:21)
[2021-05-27] MEDS ORDERED: Propofol 1,000 MG/100 ML VIAL IV ONE (23:39)
[2021-05-27] MEDS ORDERED: Furosemide 40 MG/4 ML VIAL ONE (23:39)
[2021-05-27] MEDS ORDERED: fentaNYL Citrate/PF 2,000 MCG in Sodium Chloride 0.9% 60 ML IV SCH (23:45)
[2021-05-27] MEDS ORDERED: Propofol 1,000 MG/100 ML VIAL IV PRN (23:45)
[2021-05-27] MEDS ORDERED: Morphine 2 MG/ML VIAL SLOW IVP PRN (23:45)
[2021-05-27] MEDS ORDERED: Fentanyl BOLUS 250 ML IVPB PRN (23:45)
[2021-05-27] MEDS ORDERED: Ventilator Sedation Protocol 1 EACH FS SCH (23:45)
[2021-05-27] MEDS ORDERED: Lorazepam 2 MG/ML VIAL SLOW IVP PRN (23:45)
[2021-05-27] MEDS ORDERED: Lorazepam 2 MG/ML VIAL SLOW IVP SCH (23:45)
[2021-05-27] MEDS ORDERED: Morphine 4 MG/ML VIAL SLOW IVP PRN (23:45)
[2021-05-27] MEDS ORDERED: Propofol BOLUS 1,000 MG/100 ML VIAL IV PRN (23:45)
[2021-05-27] MEDS ORDERED: DISCONTINUE PREVIOUS NARCOTIC PAIN MEDICATIONS AND BENZODIAZEPINES FS SCH (23:45)
[2021-05-27] MEDS ORDERED: Furosemide 20 MG/2 ML VIAL SLOW IVP SCH (23:45)
[2021-05-28] MEDS ORDERED: Norepinephrine 8 MG/0.9% NS 250 ML ONE (00:24)
[2021-05-28] MEDS: Piperacillin/Tazobactam 3.375 GM in Sodium Chloride 0.9% 100 ML IVPB SCH ×3 (01:20→17:57)
[2021-05-28] MEDS ORDERED: Digoxin 0.5 MG/2 ML AMP SLOW IVP SCH (02:00)
[2021-05-28] MEDS ORDERED: Norepinephrine 8 MG/0.9% NS 250 ML IVPB SCH (02:00)
[2021-05-28] MEDS: Vasopressin 20 UNIT, Admixture Fee 1 EACH in Sodium Chloride 0.9% 50 ML IV SCH ×3 (02:05→17:26)
[2021-05-28] MEDS ORDERED: Albumin 25% 100 ML ONE (02:25)
[2021-05-28] MEDS ORDERED: Amiodarone 450 MG, Admixture Fee 1 EACH in Dextrose 5% in Water 250 ML IVPB SCH (02:30)
[2021-05-28] MEDS ORDERED: Albumin 25% 25 GM/100 ML BOT IVPB SCH (02:30)
[2021-05-28] MEDS: Sodium Chloride 0.45% 1,000 ML IV SCH ×4 (02:48→19:28)
[2021-05-28] MEDS: Phenylephrine 40 MG in Sodium Chloride 0.9% 250 ML 250 ML IVPB SCH ×7 (03:13→21:26)
[2021-05-28 03:40] LABS: Anion Gap 17 mmol/L (10-20); Calc. Creatinine Clearance 41 mL/min (70-130); Calcium 8.3 mg/dL (7.8-10.44); Carbon Dioxide 15 mmol/L (22-29); Glucose 60 mg/dL (70-105); Potassium 4.2 mmol/L (3.5-5.1); Sodium 160 mmol/L (136-145)
[2021-05-28] MEDS: Acetaminophen 650 MG Suppository PR PRN (03:51)
[2021-05-28 03:52] LABS: BUN (Urea Nitrogen) 127 mg/dL (8.4-25.7)
[2021-05-28 03:53] LABS: Chloride 132 mmol/L (98-107)
[2021-05-28 03:55] LABS: Band 14 % (5-11); Hemoglobin 10.7 g/dL (14.0-18.0); Hypochromia SLIGHT = 6-15 cells (100X) (0-5/hpf); Lymphocytes 8 % (21-51); MDiff Complete? YES; Mean Corpuscular HGB CONC 29.3 g/dL (32.0-36.0); Mean Corpuscular Hemoglobin 24.2 pg (27.0-31.0); Mean Corpuscular Volume 82.8 fL (78.0-98.0); Mean Platelet Volume 12.5 fL (7.4-10.4); Monocytes 7 % (0-10); Neutrophil 71 % (42-75); Platelet Count 148 thou/uL (130-400); Platelet Morphology Comment Appears Adequate; RBC Distribution Width 24.5 % (11.5-14.5); Red Blood Cell (RBC) Count 4.42 mill/uL (4.70-6.10); White Blood Cell (WBC) Count 9.5 thou/uL (4.8-10.8)
[2021-05-28] MEDS ORDERED: Dextrose 50% Abboject 50 ML SYRINGE ONE (04:35)
[2021-05-28] MEDS: Dextrose 50% Abboject 50 ML SYRINGE SLOW IVP PRN ×5 (04:38→20:47)
[2021-05-28] MEDS: Norepinephrine 16 MG in Dextrose 5% in Water 234 ML IVPB PRN ×3 (05:28→19:26)
[2021-05-28] MEDS ORDERED: Vecuronium 10 MG VIAL ONE (08:00)
[2021-05-28] MEDS ORDERED: Dextrose 10% in Water 1,000 ML IV SCH (08:00)
[2021-05-28] MEDS ORDERED: Sterile Water 10 ML ONE (08:01)
[2021-05-28] MEDS ORDERED: Vecuronium 10 MG VIAL IVP PRN (08:01)
[2021-05-28] MEDS ORDERED: Adenosine 6 MG/2 ML VIAL ONE (08:35)
[2021-05-28 08:44] LABS: Glucose POC Confirmation 29 mg/dl (70-105)
[2021-05-28] MEDS: Adenosine 6 MG/2 ML VIAL IVP PRN ×2 (08:45→12:07)
[2021-05-28] MEDS ORDERED: Adenosine 6 MG/2 ML VIAL IVP SCH (08:45)
[2021-05-28 08:48] LABS: Actual Bicarbonate (HCO3a) 16.1 mEq/L (22-28); Analyzer IN Cardio ER; CO2 Tension 40.8 mmHg (35.0-45.0); Calcium, Ionized (arterial) 1.22 mmol/L (1.12-1.30); Carboxyhemoglobin (COHb) 0.3 gm% (0.0-3.0); Hemoglobin (Hb) 10.7 g/dL (14.0-18.0); O2 Tension (PaO2), arterial 110.2 mmHg (80.0-100.0)
[2021-05-28 08:49] LABS: pH, Arterial 7.22 (7.35-7.45)
[2021-05-28] MEDS ORDERED: Micafungin 100 MG in Sodium Chloride 0.9% 100 ML IVPB SCH (09:00)
[2021-05-28] MEDS: Metoprolol Tartrate 50 MG TAB PO SCH ×2 (09:59→19:27)
[2021-05-28] MEDS: Sodium Bicarbonate Tab 325 MG TAB PO SCH ×3 (09:59→20:55)
[2021-05-28] MEDS: Heparin 5,000 UNITS/ML VIAL SC SCH ×2 (09:59→20:55)
[2021-05-28] MEDS: hydrALAZINE 25 MG TAB PER TUBE SCH ×3 (09:59→19:27)
[2021-05-28] MEDS: Lantus 1000 UNITS/10 ML VIAL SC SCH ×2 (09:59→17:34)
[2021-05-28] MEDS: Amlodipine 10 MG TAB PO SCH (09:59)
[2021-05-28 11:39] LABS: Glucose POC Confirmation 56 mg/dl (70-105)
[2021-05-28] MEDS: Dextrose 10% in Water 1,000 ML IV SCH ×3 (13:48→21:24)
[2021-05-28] MEDS: Pantoprazole 40 MG VIAL IVP SCH (13:55)
[2021-05-28 20:03] VITALS: TEMP 98.5
[2021-05-28 20:25] LABS: Glucose POC Confirmation 44 mg/dl (70-105)
[2021-05-28] MEDS: Atorvastatin Calcium 10 MG TAB PO SCH (20:56)
[2021-05-28 22:12] LABS: Glucose 90 mg/dL (70-105)
[2021-05-28 23:36] VITALS: BP 73/48
[2021-05-29 00:09] LABS: Glucose 72 mg/dL (70-105)
[2021-05-29] MEDS: Piperacillin/Tazobactam 3.375 GM in Sodium Chloride 0.9% 100 ML IVPB SCH (01:34)
[2021-05-29] MEDS: Vasopressin 20 UNIT, Admixture Fee 1 EACH in Sodium Chloride 0.9% 50 ML IV SCH (01:34)
[2021-05-29] MEDS: Dextrose 10% in Water 1,000 ML IV SCH (01:45)
[2021-05-29] MEDS: Norepinephrine 16 MG in Dextrose 5% in Water 234 ML IVPB PRN (02:04)
[2021-05-29 02:05] LABS: Glucose 61 mg/dL (70-105)
[2021-05-29] MEDS: Dextrose 50% Abboject 50 ML SYRINGE SLOW IVP PRN (02:27)
== END 2021-05-29 02:50 | disposition expired | DRG 4 ==
LOC: ERS 11:45 → ERHOLD 12:45 → CCU 15:12 → IMCU/EMU 05-22 02:46 → T4-B 05-22 15:51 → 2NO 05-24 13:07 → IMCU/EMU 05-24 22:15 → CCU 05-27 23:37
PROVIDERS: ADMIT Internal Medicine; ATTEND Internal Medicine
PROC: 5A09457 Assistance with Respiratory Ventilation, 24-96 Consecutive Hours, Continuous Positive Airway Pressure (ICD-10-PCS; 2021-05-08)
PROC: 0B113F4 Bypass Trachea to Cutaneous with Tracheostomy Device, Percutaneous Approach (ICD-10-PCS; principal; 2021-05-10)
PROC: 5A1955Z Respiratory Ventilation, Greater than 96 Consecutive Hours (ICD-10-PCS; 2021-05-10)
PROC: 0DH63UZ Insertion of Feeding Device into Stomach, Percutaneous Approach (ICD-10-PCS; 2021-05-10)
PROC: 3E0G76Z Introduction of Nutritional Substance into Upper GI, Via Natural or Artificial Opening (ICD-10-PCS; 2021-05-10)
PROC: 8E0ZXY6 Isolation (ICD-10-PCS; 2021-05-12)
PROC: 06HY33Z Insertion of Infusion Device into Lower Vein, Percutaneous Approach (ICD-10-PCS; 2021-05-28)
PROC: 3E033XZ Introduction of Vasopressor into Peripheral Vein, Percutaneous Approach (ICD-10-PCS; 2021-05-28)
PROC: 5A12012 Performance of Cardiac Output, Single, Manual (ICD-10-PCS; 2021-05-29)
DX: I61.9 Nontraumatic intracerebral hemorrhage, unspecified (principal); J69.0 Pneumonitis due to inhalation of food and vomit; U07.1 COVID-19; Z66 Do not resuscitate; G93.41 Metabolic encephalopathy; A41.9 Sepsis, unspecified organism; R65.20 Severe sepsis without septic shock; G81.91 Hemiplegia, unspecified affecting right dominant side; I50.32 Chronic diastolic (congestive) heart failure; R47.01 Aphasia; J96.11 Chronic respiratory failure with hypoxia; I13.0 Hypertensive heart and chronic kidney disease with heart failure and stage 1 through stage 4 chronic kidney disease, or unspecified chronic kidney disease; N17.9 Acute kidney failure, unspecified; I48.21 Permanent atrial fibrillation; E87.0 Hyperosmolality and hypernatremia; N39.0 Urinary tract infection, site not specified; E46 Unspecified protein-calorie malnutrition; I47.1 Supraventricular tachycardia; E87.2 Acidosis; E87.3 Alkalosis; R29.810 Facial weakness; J44.9 Chronic obstructive pulmonary disease, unspecified; D53.9 Nutritional anemia, unspecified; G89.29 Other chronic pain; E11.22 Type 2 diabetes mellitus with diabetic chronic kidney disease; R31.9 Hematuria, unspecified; M10.9 Gout, unspecified; R13.12 Dysphagia, oropharyngeal phase; E78.5 Hyperlipidemia, unspecified; G47.00 Insomnia, unspecified; E87.8 Other disorders of electrolyte and fluid balance, not elsewhere classified; N18.30 Chronic kidney disease, stage 3 unspecified; E87.5 Hyperkalemia; E11.649 Type 2 diabetes mellitus with hypoglycemia without coma; I46.9 Cardiac arrest, cause unspecified; J04.10 Acute tracheitis without obstruction; Z79.01 Long term (current) use of anticoagulants; Z95.810 Presence of automatic (implantable) cardiac defibrillator; Z86.73 Personal history of transient ischemic attack (TIA), and cerebral infarction without residual deficits; Z87.891 Personal history of nicotine dependence; Z68.37 Body mass index [BMI] 37.0-37.9, adult
CPT/HCPCS: 36415; 36416; 36600; 51702; 70450; 70496; 70498; 71045; 74018; 76770; 80048; 80053; 80076; 80202; 81001; 81003; 81015; 82533; 82805; 83036; 83605; 83690; 83735; 83930; 83935; 84100; 85025; 85610; 85730; 86140; 86850; 86900; 86901; 87040; 87070; 87077; 87086; 87186; 87205; 93005; 93010; 93306; 94002; 94003; 94640; 94660; 94667; 94668; 96365; 96366; 96368; C1713; C9113; J0153; J0282; J0360; J1100; J1160; J1644; J1815; J1940; J2060; J2185; J2248; J2270; J2370; J2543; J2704; J3010; J3370; J3475; J3490; J7042; J7050; J7070; J7120; J7168; J7620; P9047; Q9966; S0020; U0002; U0003; U0005